=== PATIENT | female | born 1955 | race Caucasian/White ===

== ENCOUNTER → 2017-10-20 | Outpatient (CLI) | payer BC ==
[~2017-10-20] MED LIST: ALPR-475 PO; HYDR25TA6 PO; LISI40TA PO; MONT10TA6 PO; PARO20TA98 PO; TRAZ150T62 PO; VENL150C PO
== END | disposition home or self-care (01) ==
LOC: CFH 12:54
PROVIDERS: ATTEND Family Medicine
DX: N63.10 Unspecified lump in the right breast, unspecified quadrant (principal); N64.4 Mastodynia
CPT/HCPCS: 77066

== ENCOUNTER 2018-03-15 13:05 | Inpatient (IN) | payer BC ==
[~2018-03-15] VITALS: Ht 152.4 cm; Wt 61.4 kg
[2018-03-15] MEDS ORDERED: SODIUM CHLORIDE 0.9% 1,000ML IVBOLUS ONE (14:00)
[2018-03-15] MEDS ORDERED: SODIUM CHLORIDE FLUSH 10ML SYR IVF ONE (14:00)
[2018-03-15] MEDS ORDERED: MAGNESIUM SULFATE 1 GM, THIAMINE 100 MG, FOLIC ACID 1 MG, MVI ADULT 10 ML in SODIUM CHL... IV ONE (14:30)
[2018-03-15 14:46] LABS: MEAN CORPUSCULAR HEMOGLOBIN 38.1 pg (27.0-34.8); MEAN CORPUSCULAR VOLUME 112.1 fL (80-100); MEAN PLATELET VOLUME 7.3 fL (7.4-10.4); PLATELET COUNT 407 x10^3/uL (130-400); RED BLOOD COUNT 3.15 x10^6/uL (3.82-5.3); RED CELL DISTRIBUTION WIDTH 15.4 % (9.6-15.2)
[2018-03-15 14:53] LABS: ALBUMIN 2.6 g/dL (3.4-5.0); ANION GAP 25 mmol/L (5-15); CALCIUM 8.1 mg/dL (8.5-10.1); CHLORIDE 83 mmol/L (98-107)
[2018-03-15 14:56] LABS: ALANINE AMINOTRANSFERASE 55 U/L (12-78); ALKALINE PHOSPHATASE 97 U/L (45-117); CREATININE 0.81 mg/dL (0.55-1.02); TOTAL PROTEIN 6.1 g/dL (6.4-8.2)
[2018-03-15 15:02] LABS: MD YES
[2018-03-15] MEDS ORDERED: POTASSIUM CHLORIDE 40 MEQ in SODIUM CHLORIDE 0.9% 500 ML IV ONE ×2 (15:30→22:00)
[2018-03-15] MEDS ORDERED: POTASSIUM CHLORIDE 20 MEQ TAB.ER.PRT PO ONE (15:30)
[2018-03-15] MEDS ORDERED: POTASSIUM CHLORIDE 20 MEQ TAB.ER.PRT ONE (15:33)
[2018-03-15 15:36] LABS: BAND#(MANUAL) 0.64 x10^3/uL; BANDS%(MANUAL) 5 % (0-7); LYMPH#(MANUAL) 1.41 x10^3/uL (1-3.4); LYMPHS% (MANUAL) 11 % (22-44); MONOS#(MANUAL) 1.28 x10^3/uL (0.3-2.7); MONOS% (MANUAL) 10 % (2-9); SEG#(MANUAL) 9.47 x10^3/uL (1.8-6.8); SEGS% (MANUAL) 74 % (42-75)
[2018-03-15 15:37] LABS: <PLATELET ESTIMATE> INCREASED; ANISOCYTOSIS 2+
[2018-03-15 15:38] LABS: LARGE PLATELETS 1+; SMALL PLATELETS 1+
[2018-03-15] MEDS: SODIUM CHLORIDE 0.9% 1,000 ML IV SCH ×4 (15:42→23:00)
[2018-03-15] MEDS ORDERED: OMNIPAQUE 350 MG/ML, 100ML BOTTLE ONE (15:58)
[2018-03-15] MEDS ORDERED: morphine SULFATE 10 MG/ML, 1ML IVPush PRN (16:00)
[2018-03-15] MEDS ORDERED: ENALAPRILAT 1.25 MG/ML, 2ML IVPush PRN (16:00)
[2018-03-15 16:10] LABS: INTERNATIONAL NORMALIZED RATIO 1.01 (0.93-1.1); PROTHROMBIN TIME 10.4 Seconds (9.6-11.5)
[2018-03-15 16:31] VITALS: BP 88/50
[2018-03-15] MEDS ORDERED: LORazepam 2 MG/ML, 1ML IVPush PRN (17:00)
[2018-03-15] MEDS: OXYcodone IR 5MG TABLET PO PRN ×2 (18:06→21:22)
[2018-03-15 19:08] VITALS: BP 99/74
[2018-03-15 19:10] LABS: ANION GAP 20 mmol/L (5-15); CALCIUM 6.8 mg/dL (8.5-10.1); CHLORIDE 90 mmol/L (98-107); CREATININE 0.65 mg/dL (0.55-1.02)
[2018-03-15] MEDS: POTASSIUM CHLORIDE 20 MEQ TAB.ER.PRT PO SCH (19:43)
[2018-03-15] MEDS: VENLAFAXINE 75 MG CAP ER PO SCH (20:22)
[2018-03-15] MEDS: TRAZODONE 150MG TABLET PO SCH (20:23)
[2018-03-15] MEDS: HEPARIN 5,000 UNITS/ML, 1ML SQ SCH (20:23)
[2018-03-15] MEDS ORDERED: TRAZODONE 150MG TABLET PO PRN (21:00)
[2018-03-16 02:35] VITALS: BP 95/64
[2018-03-16 04:57] LABS: MEAN CORPUSCULAR HEMOGLOBIN 38.5 pg (27.0-34.8); MEAN CORPUSCULAR HGB CONC 34.2 g/dL (32.4-35.8); MEAN CORPUSCULAR VOLUME 112.6 fL (80-100); MEAN PLATELET VOLUME 7.5 fL (7.4-10.4); PLATELET COUNT 307 x10^3/uL (130-400); RED BLOOD COUNT 2.57 x10^6/uL (3.82-5.3); RED CELL DISTRIBUTION WIDTH 15.2 % (9.6-15.2)
[2018-03-16 05:00] LABS: ANION GAP 15 mmol/L (5-15); CALCIUM 6.7 mg/dL (8.5-10.1); CHLORIDE 105 mmol/L (98-107)
[2018-03-16] MEDS: HEPARIN 5,000 UNITS/ML, 1ML SQ SCH ×3 (05:00→21:24)
[2018-03-16 05:05] LABS: ALANINE AMINOTRANSFERASE 39 U/L (12-78); ALKALINE PHOSPHATASE 77 U/L (45-117); BILIRUBIN,TOTAL 0.7 mg/dL (0.2-1.0); CHOLESTEROL, TOTAL 113 mg/dL (140-239); CREATININE 0.55 mg/dL (0.55-1.02); HDL CHOL % 50 % (28-40); HDL CHOLESTEROL (DIRECT) 56 mg/dL (40-60); LDL CHOLESTEROL,CALCULATED 40 mg/dL (54-169); LDL/HDL RATIO 0.7 (0.5-3.0); TOTAL PROTEIN 4.7 g/dL (6.4-8.2); TRIGLYCERIDES 83 mg/dL (50-200); VLDL CHOLESTEROL 17 mg/dL (0-25)
[2018-03-16 06:01] LABS: MD YES
[2018-03-16 06:06] LABS: <PLATELET ESTIMATE> ADEQUATE; ANISOCYTOSIS 1+; BAND#(MANUAL) 0.13 x10^3/uL; BANDS%(MANUAL) 2 % (0-7); EOS#(MANUAL) 0.06 x10^3/uL (0.0-0.4); EOS% (MANUAL) 1 % (1-7); LARGE PLATELETS 1+; LYMPH#(MANUAL) 1.02 x10^3/uL (1-3.4); LYMPHS% (MANUAL) 16 % (22-44); MONOS#(MANUAL) 0.19 x10^3/uL (0.3-2.7); MONOS% (MANUAL) 3 % (2-9); MYELOCYTES# (MANUAL) 0.06 x10^3/uL (0-0); MYELOCYTES% (MANUAL) 1 % (0-0); SEG#(MANUAL) 4.93 x10^3/uL (1.8-6.8); SEGS% (MANUAL) 77 % (42-75)
[2018-03-16 06:59] VITALS: BP 91/63
[2018-03-16] MEDS: THIAMINE 100MG TABLET PO SCH (09:00)
[2018-03-16] MEDS ORDERED: LISINOPRIL 20 MG TABLET PO SCH (09:00)
[2018-03-16] MEDS: MONTELUKAST 10 MG TABLET PO SCH (09:33)
[2018-03-16] MEDS: VENLAFAXINE 75 MG CAP ER PO SCH ×2 (09:34→21:24)
[2018-03-16] MEDS: POTASSIUM CHLORIDE 20 MEQ TAB.ER.PRT PO SCH ×2 (09:34→16:34)
[2018-03-16] MEDS: FOLIC ACID 1 MG TABLET PO SCH (09:34)
[2018-03-16] MEDS: MULTIVITAMIN 1 TABLET PO SCH (09:35)
[2018-03-16 14:24] VITALS: BP 127/79
[2018-03-16] MEDS ORDERED: SODIUM CHLORIDE 0.9% 1,000 ML IV SCH (15:42)
[2018-03-16] MEDS: SODIUM CHLORIDE 0.9% 1,000 ML IV SCH ×2 (16:33→23:57)
[2018-03-16 20:22] VITALS: BP 120/73
[2018-03-16 20:24] VITALS: BP 132/87
[2018-03-16 20:26] VITALS: BP 120/80
[2018-03-16] MEDS: TRAZODONE 150MG TABLET PO SCH (21:24)
[2018-03-16] MEDS: CALCIUM CARBONATE 500 MG TABLET PO SCH (21:24)
[2018-03-17 02:02] VITALS: BP 138/83
[2018-03-17 04:45] LABS: MEAN CORPUSCULAR HEMOGLOBIN 38.3 pg (27.0-34.8); MEAN CORPUSCULAR HGB CONC 34.4 g/dL (32.4-35.8); MEAN CORPUSCULAR VOLUME 111.2 fL (80-100); MEAN PLATELET VOLUME 7.4 fL (7.4-10.4); PLATELET COUNT 310 x10^3/uL (130-400); RED BLOOD COUNT 2.82 x10^6/uL (3.82-5.3); RED CELL DISTRIBUTION WIDTH 15.3 % (9.6-15.2)
[2018-03-17 04:59] LABS: CHLORIDE 103 mmol/L (98-107)
[2018-03-17 05:07] LABS: ALANINE AMINOTRANSFERASE 48 U/L (12-78); ALBUMIN 2.4 g/dL (3.4-5.0); ALKALINE PHOSPHATASE 87 U/L (45-117); ANION GAP 8 mmol/L (5-15); BILIRUBIN,TOTAL 0.7 mg/dL (0.2-1.0); TOTAL PROTEIN 5.4 g/dL (6.4-8.2)
[2018-03-17] MEDS: HEPARIN 5,000 UNITS/ML, 1ML SQ SCH (05:10)
[2018-03-17 05:24] LABS: BASOPHILS # (AUTO) 0.02 x10^3/uL (0-0.1); BASOPHILS % (AUTO) 0 % (0-1); EOSINOPHILS # (AUTO) 0.08 x10^3/uL (0-0.4); EOSINOPHILS % (AUTO) 1 % (1-7); LYMPHOCYTES # (AUTO) 1.22 x10^3/uL (1-3.4); LYMPHOCYTES % (AUTO) 20 % (22-44); MD SCAN; MONOCYTES # (AUTO) 0.84 x10^3/uL (0.2-0.8); MONOCYTES % (AUTO) 14 % (2-9); NEUTROPHILS # (AUTO) 4.03 x10^3/uL (1.8-6.8); NEUTROPHILS % (AUTO) 65 % (42-75)
[2018-03-17 08:00] VITALS: BP 114/78
[2018-03-17 08:02] VITALS: BP 128/91
[2018-03-17 08:04] VITALS: BP 118/82
[2018-03-17] MEDS: MONTELUKAST 10 MG TABLET PO SCH (08:10)
[2018-03-17] MEDS: ENOXAPARIN 40 MG/0.4 ML SQ SCH (08:10)
[2018-03-17] MEDS: POTASSIUM CHLORIDE 20 MEQ TAB.ER.PRT PO SCH ×2 (08:11→16:59)
[2018-03-17] MEDS: MULTIVITAMIN 1 TABLET PO SCH (08:11)
[2018-03-17] MEDS: THIAMINE 100MG TABLET PO SCH (08:11)
[2018-03-17] MEDS: CALCIUM CARBONATE 500 MG TABLET PO SCH ×2 (08:12→20:29)
[2018-03-17] MEDS: VENLAFAXINE 75 MG CAP ER PO SCH ×2 (08:12→20:29)
[2018-03-17] MEDS: FOLIC ACID 1 MG TABLET PO SCH (08:13)
[2018-03-17 11:39] LABS: CLOSTRIDIUM DIFFICILE ANTIGEN NEGATIVE; CLOSTRIDIUM DIFFICILE TOXIN NEGATIVE (Negative)
[2018-03-17 14:22] VITALS: BP 120/88
[2018-03-17] MEDS: SODIUM CHLORIDE 0.9% 1,000 ML IV SCH (15:42)
[2018-03-17 20:02] VITALS: BP 131/91
[2018-03-17] MEDS: TRAZODONE 150MG TABLET PO SCH (20:28)
[2018-03-18 01:49] VITALS: BP 127/84
[2018-03-18 01:50] VITALS: BP 116/79
[2018-03-18 01:51] VITALS: BP 121/88
[2018-03-18 05:35] LABS: MEAN CORPUSCULAR HEMOGLOBIN 38.3 pg (27.0-34.8); MEAN CORPUSCULAR HGB CONC 34.6 g/dL (32.4-35.8); MEAN CORPUSCULAR VOLUME 110.7 fL (80-100); MEAN PLATELET VOLUME 7.3 fL (7.4-10.4); PLATELET COUNT 262 x10^3/uL (130-400); RED BLOOD COUNT 2.73 x10^6/uL (3.82-5.3); RED CELL DISTRIBUTION WIDTH 15.7 % (9.6-15.2)
[2018-03-18 05:44] LABS: ALANINE AMINOTRANSFERASE 47 U/L (12-78); ALBUMIN 2.4 g/dL (3.4-5.0); ANION GAP 8 mmol/L (5-15); CALCIUM 7.9 mg/dL (8.5-10.1); CHLORIDE 103 mmol/L (98-107); CREATININE 0.49 mg/dL (0.55-1.02)
[2018-03-18 05:46] LABS: ALKALINE PHOSPHATASE 79 U/L (45-117); BILIRUBIN,TOTAL 0.6 mg/dL (0.2-1.0); TOTAL PROTEIN 5.3 g/dL (6.4-8.2)
[2018-03-18 06:07] LABS: BASOPHILS # (AUTO) 0.04 x10^3/uL (0-0.1); BASOPHILS % (AUTO) 1 % (0-1); EOSINOPHILS # (AUTO) 0.09 x10^3/uL (0-0.4); EOSINOPHILS % (AUTO) 2 % (1-7); LYMPHOCYTES # (AUTO) 1.19 x10^3/uL (1-3.4); LYMPHOCYTES % (AUTO) 22 % (22-44); MD SCAN; MONOCYTES # (AUTO) 0.88 x10^3/uL (0.2-0.8); MONOCYTES % (AUTO) 16 % (2-9); NEUTROPHILS # (AUTO) 3.27 x10^3/uL (1.8-6.8); NEUTROPHILS % (AUTO) 60 % (42-75)
[2018-03-18 07:21] VITALS: BP 134/83
[2018-03-18] MEDS: VENLAFAXINE 75 MG CAP ER PO SCH (09:31)
[2018-03-18] MEDS: ENOXAPARIN 40 MG/0.4 ML SQ SCH (09:31)
[2018-03-18] MEDS: POTASSIUM CHLORIDE 20 MEQ TAB.ER.PRT PO SCH (09:32)
[2018-03-18] MEDS: MONTELUKAST 10 MG TABLET PO SCH (09:32)
[2018-03-18] MEDS: MULTIVITAMIN 1 TABLET PO SCH (09:33)
[2018-03-18] MEDS: CALCIUM CARBONATE 500 MG TABLET PO SCH (09:33)
[2018-03-18] MEDS: THIAMINE 100MG TABLET PO SCH (09:33)
[2018-03-18] MEDS: FOLIC ACID 1 MG TABLET PO SCH (09:34)
[2018-03-18] MEDS ORDERED: CALC-666 PO (10:38)
[2018-03-18] MEDS ORDERED: THIA100T67 PO (10:38)
[2018-03-18] MEDS ORDERED: POTA20TA6 PO (10:38)
[2018-03-18] MEDS ORDERED: MAGN400T26 PO (10:38)
[2018-03-18] MEDS ORDERED: TRAM50TA2 PO (10:38)
[2018-03-18] MEDS ORDERED: ONDA4TAB13 SL ×2 (10:38)
[2018-03-18] MEDS ORDERED: MULT1TAB60 PO (10:38)
[2018-03-18] MEDS ORDERED: FOLI-17 PO (10:38)
[2018-03-18] MEDS: SODIUM CHLORIDE 0.9% 1,000 ML IV SCH (11:42)
== END 2018-03-18 13:56 | disposition home health service (06) | DRG 432 ==
LOC: ED 15:17 → EDIP 15:18 → ED 15:52 → 4WST 16:21 → DCLOUNGE 03-18 13:36
PROVIDERS: ADMIT Internal Medicine; ATTEND Internal Medicine
DX: K70.10 Alcoholic hepatitis without ascites (principal); K85.90 Acute pancreatitis without necrosis or infection, unspecified; E44.0 Moderate protein-calorie malnutrition; E87.1 Hypo-osmolality and hyponatremia; K52.9 Noninfective gastroenteritis and colitis, unspecified; E87.6 Hypokalemia; E86.0 Dehydration; K76.0 Fatty (change of) liver, not elsewhere classified; I10 Essential (primary) hypertension; F17.210 Nicotine dependence, cigarettes, uncomplicated; F10.10 Alcohol abuse, uncomplicated; X58.XXXA Exposure to other specified factors, initial encounter; R29.6 Repeated falls; F32.9 Major depressive disorder, single episode, unspecified; D75.89 Other specified diseases of blood and blood-forming organs; G47.00 Insomnia, unspecified; J45.909 Unspecified asthma, uncomplicated; S05.12XA Contusion of eyeball and orbital tissues, left eye, initial encounter; Z98.84 Bariatric surgery status; Z91.81 History of falling; Y93.89 Activity, other specified; Y92.89 Other specified places as the place of occurrence of the external cause; Y99.8 Other external cause status; Z90.49 Acquired absence of other specified parts of digestive tract; Z68.26 Body mass index [BMI] 26.0-26.9, adult
CPT/HCPCS: 36415; 70450; 72125; 74177; 76700; 80048; 80053; 80061; 80307; 82607; 83605; 83690; 83735; 84443; 85025; 85610; 85730; 87324; 93005; 93306; 93880; 96374; 96375; 99285; G0378; J1644; J1650; J3411; J3475; J3480; Q9967; J2060; J7030; J7040

== ENCOUNTER 2018-03-29 14:35 | Emergency (ER) | payer BC ==
[~2018-03-29] VITALS: Ht 172.7 cm; Wt 57.8 kg
[~2018-03-29 14:35] MED LIST changes: +CALC-666 PO; +FOLI-17 PO; +MAGN400T26 PO; +MULT1TAB60 PO; +ONDA4TAB13 SL; +POTA20TA6 PO; +THIA100T67 PO; +TRAM50TA2 PO
[2018-03-29 14:53] VITALS: BP 129/85
== END 2018-03-29 16:44 | disposition home or self-care (01) ==
LOC: ED 16:32
DX: S92.352A Displaced fracture of fifth metatarsal bone, left foot, initial encounter for closed fracture (principal); J45.909 Unspecified asthma, uncomplicated; F17.200 Nicotine dependence, unspecified, uncomplicated; Z90.49 Acquired absence of other specified parts of digestive tract; W19.XXXA Unspecified fall, initial encounter; Y93.89 Activity, other specified; Y99.8 Other external cause status; Y92.89 Other specified places as the place of occurrence of the external cause
CPT/HCPCS: 29515; 99284

== ENCOUNTER 2019-01-02 15:48 | Emergency (ER) | payer BC ==
[~2019-01-02] VITALS: Ht 152.4 cm; Wt 72.7 kg
[2019-01-02 17:49] VITALS: BP 142/76
== END 2019-01-02 17:51 | disposition home or self-care (01) ==
LOC: ED 16:19
DX: F33.9 Major depressive disorder, recurrent, unspecified (principal); F10.120 Alcohol abuse with intoxication, uncomplicated; I10 Essential (primary) hypertension; Z90.49 Acquired absence of other specified parts of digestive tract
CPT/HCPCS: 36415; 80048; 82040; 84443; 85025; 99284

== ENCOUNTER 2019-04-05 07:07 | Outpatient (CLI) | payer BC ==
[~2019-04-05 07:07] MED LIST changes: -ALPR-475 PO; +ALPR0.5T7 PO
== END 2019-04-05 23:59 | disposition home or self-care (01) ==
LOC: CFH 07:07
PROVIDERS: ATTEND Nurse Practitioner Family
DX: Z12.31 Encounter for screening mammogram for malignant neoplasm of breast (principal); R16.0 Hepatomegaly, not elsewhere classified; K76.0 Fatty (change of) liver, not elsewhere classified; Z90.49 Acquired absence of other specified parts of digestive tract
CPT/HCPCS: 76705; 77063; 77067

== ENCOUNTER 2019-11-18 10:26 | Inpatient (IN) | payer BC ==
[~2019-11-18] VITALS: Ht 152.4 cm; Wt 54.9 kg
[~2019-11-18 10:26] MED LIST changes: +MULT-449 PO; -MULT1TAB60 PO
[2019-11-18] MEDS ORDERED: SODIUM CHLORIDE FLUSH 10ML SYR IVF ONE (11:00)
[2019-11-18] MEDS ORDERED: SODIUM CHLORIDE 0.9% 1,000ML IVBOLUS ONE (11:00)
--- NOTE | 2019-11-18 11:03 | NUR ---
PT STATED SHE CANNOT PRODUCE A URINE SAMPLE AT THIS TIME. PT AGREED TO STRAIGHT CATH TO COLLECT URINE. TASK RN AT BEDSIDE FOR PIV START AND LAB DRAW.
--- NOTE | 2019-11-18 11:25 | NUR ---
URINE COLLECTED VIA STRAIGHT CATH AND TAKEN TO LAB.
[2019-11-18 11:40] LABS: ALANINE AMINOTRANSFERASE 37 U/L (12-78); ALBUMIN 2.8 g/dL (3.4-5.0); ANION GAP 14 mmol/L (5-15); CALCIUM 8.5 mg/dL (8.5-10.1); CHLORIDE 82 mmol/L (98-107); CREATININE 0.85 mg/dL (0.55-1.02)
[2019-11-18 11:41] LABS: BASOPHILS # (AUTO) 0.05 x10^3/uL (0-0.1); BASOPHILS % (AUTO) 1 % (0-1); EOSINOPHILS # (AUTO) 0.01 x10^3/uL (0-0.4); EOSINOPHILS % (AUTO) 0 % (1-7); LYMPHOCYTES # (AUTO) 0.89 x10^3/uL (1-3.4); LYMPHOCYTES % (AUTO) 10 % (22-44); MD NO; MEAN CORPUSCULAR HEMOGLOBIN 34.6 pg (27.0-34.8); MEAN CORPUSCULAR HGB CONC 33.3 g/dL (32.4-35.8); MEAN CORPUSCULAR VOLUME 103.9 fL (80-100); MEAN PLATELET VOLUME 8.9 fL (7.4-10.4); MONOCYTES # (AUTO) 0.47 x10^3/uL (0.2-0.8); MONOCYTES % (AUTO) 5 % (2-9); NEUTROPHILS # (AUTO) 7.53 x10^3/uL (1.8-6.8); NEUTROPHILS % (AUTO) 84 % (42-75); PLATELET COUNT 247 x10^3/uL (130-400); RED BLOOD COUNT 3.19 x10^6/uL (3.82-5.3); RED CELL DISTRIBUTION WIDTH 21.5 % (9.6-15.2)
[2019-11-18 11:43] LABS: ALKALINE PHOSPHATASE 128 U/L (45-117); TOTAL PROTEIN 6.8 g/dL (6.4-8.2)
[2019-11-18] MEDS ORDERED: POTASSIUM CHLORIDE 40 MEQ in SODIUM CHLORIDE 0.9% 1,000 ML IV ONE ×2 (11:58→12:56)
[2019-11-18] MEDS ORDERED: MAGNESIUM SULFATE 1 GM in SODIUM CHLORIDE 0.9% 50 ML IV ONE (12:00)
--- NOTE | 2019-11-18 12:08 | NUR ---
PT AT XRAY
--- NOTE | 2019-11-18 12:09 | NUR ---
RECEIVED CRITICAL POTASSIUM 2.0. NOTIFIED. NEW ORDERS FOR MAG AND POTASSIUM. REQUESTED IV PUMP FROM [facility]
[2019-11-18 12:19] LABS: MICROSCOPIC INDICATED
[2019-11-18] MEDS ORDERED: MAGNESIUM SULFATE/D5W 100 ML IVPB ONE (12:30)
--- NOTE | 2019-11-18 12:54 | NUR ---
HOSPITALIST AT BEDSIDE. TECH AT BEDSIDE FOR US PIV PLACEMENT.
[2019-11-18] MEDS ORDERED: SODIUM CHLORIDE FLUSH 10ML SYR IVF PRN (13:00)
[2019-11-18] MEDS ORDERED: NS + 40MEQ KCL 1,000 ML IV ONE (13:02)
[2019-11-18] MEDS ORDERED: LACTULOSE 20 GM/30 ML UDC PO ONE (13:30)
[2019-11-18] MEDS ORDERED: LORazepam 2 MG/ML, 1ML IVPush PRN (13:30)
[2019-11-18] MEDS ORDERED: ONDANSETRON ODT 4 MG PO PRN (13:30)
[2019-11-18] MEDS: CEFTRIAXONE PMX 1GM/50ML 50 ML IV SCH (13:30)
[2019-11-18] MEDS ORDERED: ONDANSETRON 2MG/ML, 2ML IVPush PRN (13:30)
[2019-11-18] MEDS ORDERED: ACETAMINOPHEN 325 MG TABLET PO PRN (13:30)
[2019-11-18 13:48] LABS: SALICYLATE LEVEL < 1.7 mg/dL (2.8-20.0)
[2019-11-18] MEDS ORDERED: CEFTRIAXONE PMX 1GM/50ML 50 ML ONE (14:08)
--- NOTE | 2019-11-18 14:14 | NUR ---
REPORT GIVEN TO CHER TAI.
[2019-11-18 15:00] VITALS: BP 95/61
[2019-11-18] MEDS: ENOXAPARIN 40 MG/0.4 ML SQ SCH (15:33)
[2019-11-18] MEDS: POTASSIUM CHLORIDE 20 MEQ TAB.ER.PRT PO SCH ×2 (15:33→17:00)
[2019-11-18 18:45] VITALS: BP 106/74
[2019-11-18 19:16] LABS: AMPHETAMINE SCREEN, URINE Negative (Negative); BARBITURATE SCREEN, URINE Negative (Negative); BENZODIAZEPINE SCREEN, URINE Negative (Negative); CANNABINOID SCREEN, URINE Negative (Negative); COCAINE SCREEN, URINE Negative (Negative); METHADONE SCREEN, URINE Negative (Negative); OPIATE SCREEN, URINE Negative (Negative)
[2019-11-18] MEDS: NS + 20MEQ KCL 1,000 ML IV SCH (20:15)
[2019-11-19 02:00] VITALS: BP 97/63
[2019-11-19 04:56] LABS: BASOPHILS # (AUTO) 0.04 x10^3/uL (0-0.1); BASOPHILS % (AUTO) 1 % (0-1); EOSINOPHILS # (AUTO) 0.03 x10^3/uL (0-0.4); EOSINOPHILS % (AUTO) 1 % (1-7); LYMPHOCYTES # (AUTO) 1.29 x10^3/uL (1-3.4); LYMPHOCYTES % (AUTO) 24 % (22-44); MD NO; MEAN CORPUSCULAR HEMOGLOBIN 33.9 pg (27.0-34.8); MEAN CORPUSCULAR HGB CONC 32.5 g/dL (32.4-35.8); MEAN CORPUSCULAR VOLUME 104.4 fL (80-100); MEAN PLATELET VOLUME 8.6 fL (7.4-10.4); MONOCYTES # (AUTO) 0.48 x10^3/uL (0.2-0.8); MONOCYTES % (AUTO) 9 % (2-9); NEUTROPHILS % (AUTO) 66 % (42-75); PLATELET COUNT 173 x10^3/uL (130-400); RED BLOOD COUNT 2.56 x10^6/uL (3.82-5.3); RED CELL DISTRIBUTION WIDTH 21.5 % (9.6-15.2)
[2019-11-19 05:05] LABS: CALCIUM 7.5 mg/dL (8.5-10.1); CHLORIDE 94 mmol/L (98-107)
[2019-11-19 05:11] LABS: ALANINE AMINOTRANSFERASE 32 U/L (12-78); ALBUMIN 2.3 g/dL (3.4-5.0); ALKALINE PHOSPHATASE 102 U/L (45-117); ANION GAP 8 mmol/L (5-15); BILIRUBIN,TOTAL 2.6 mg/dL (0.2-1.0); TOTAL PROTEIN 5.5 g/dL (6.4-8.2)
[2019-11-19 07:16] VITALS: BP 103/74
[2019-11-19] MEDS ORDERED: PANTOPRAZOLE 40 MG IV IVPush SCH (07:30)
[2019-11-19] MEDS: POTASSIUM CHLORIDE 20 MEQ TAB.ER.PRT PO SCH (08:25)
[2019-11-19] MEDS: FOLIC ACID 1 MG TABLET PO SCH (08:25)
[2019-11-19] MEDS: THIAMINE 100MG TABLET PO SCH (08:25)
[2019-11-19] MEDS: MULTIVITAMIN 1 TABLET PO SCH (09:00)
[2019-11-19] MEDS: NS + 20MEQ KCL 1,000 ML IV SCH (11:09)
[2019-11-19 13:32] VITALS: BP 133/80
[2019-11-19] MEDS: CEFTRIAXONE PMX 1GM/50ML 50 ML IV SCH (14:22)
[2019-11-19] MEDS: ENOXAPARIN 40 MG/0.4 ML SQ SCH (14:22)
[2019-11-19] MEDS ORDERED: POTASSIUM CHLORIDE 20 MEQ TAB.ER.PRT PO SCH (17:00)
[2019-11-19 18:45] VITALS: BP 109/74
[2019-11-20 00:40] VITALS: BP 113/75
[2019-11-20] MEDS: NS + 20MEQ KCL 1,000 ML IV SCH ×2 (05:15→18:04)
[2019-11-20] MEDS: OMEPRAZOLE 20 MG CAPSULE.DR PO SCH (05:16)
[2019-11-20 06:39] LABS: ANION GAP 6 mmol/L (5-15); CALCIUM 8.1 mg/dL (8.5-10.1); CHLORIDE 98 mmol/L (98-107)
[2019-11-20 07:00] VITALS: BP 128/83
[2019-11-20] MEDS: MULTIVITAMIN 1 TABLET PO SCH (09:18)
[2019-11-20] MEDS: POTASSIUM CHLORIDE 20 MEQ TAB.ER.PRT PO SCH ×4 (09:18→21:00)
[2019-11-20] MEDS: FOLIC ACID 1 MG TABLET PO SCH (09:19)
[2019-11-20] MEDS: THIAMINE 100MG TABLET PO SCH (09:19)
[2019-11-20 13:03] VITALS: BP 107/68
[2019-11-20] MEDS: CEFTRIAXONE PMX 1GM/50ML 50 ML IV SCH (14:10)
[2019-11-20] MEDS: ENOXAPARIN 40 MG/0.4 ML SQ SCH (14:10)
[2019-11-20 19:11] VITALS: BP 102/63
[2019-11-21 00:50] VITALS: BP 110/68
[2019-11-21] MEDS: OMEPRAZOLE 20 MG CAPSULE.DR PO SCH (06:12)
[2019-11-21 06:17] LABS: ANION GAP 6 mmol/L (5-15); CALCIUM 8.3 mg/dL (8.5-10.1); CHLORIDE 104 mmol/L (98-107)
[2019-11-21 06:21] LABS: % IRON SATURATION 18 % (20-55); CREATININE 0.53 mg/dL (0.55-1.02); IRON LEVEL 36 mcg/dL (50-170); TOTAL IRON BINDING CAPACITY 199 mcg/dL (250-450)
[2019-11-21 06:38] VITALS: BP 117/74
[2019-11-21 06:43] LABS: BASOPHILS # (AUTO) 0.05 x10^3/uL (0-0.1); BASOPHILS % (AUTO) 1 % (0-1); EOSINOPHILS % (AUTO) 1 % (1-7); LYMPHOCYTES # (AUTO) 2.48 x10^3/uL (1-3.4); LYMPHOCYTES % (AUTO) 30 % (22-44); MD SCAN; MEAN CORPUSCULAR HGB CONC 32.6 g/dL (32.4-35.8); MEAN CORPUSCULAR VOLUME 104.3 fL (80-100); MEAN PLATELET VOLUME 8.9 fL (7.4-10.4); MONOCYTES # (AUTO) 0.68 x10^3/uL (0.2-0.8); MONOCYTES % (AUTO) 8 % (2-9); NEUTROPHILS # (AUTO) 5.05 x10^3/uL (1.8-6.8); NEUTROPHILS % (AUTO) 60 % (42-75); PLATELET COUNT 199 x10^3/uL (130-400); RED BLOOD COUNT 2.74 x10^6/uL (3.82-5.3); RED CELL DISTRIBUTION WIDTH 21.8 % (9.6-15.2)
[2019-11-21] MEDS: THIAMINE 100MG TABLET PO SCH (08:14)
[2019-11-21] MEDS: FOLIC ACID 1 MG TABLET PO SCH (08:14)
[2019-11-21] MEDS: POTASSIUM CHLORIDE 20 MEQ TAB.ER.PRT PO SCH ×2 (08:14→17:22)
[2019-11-21] MEDS: MULTIVITAMIN 1 TABLET PO SCH (08:14)
[2019-11-21] MEDS: NS + 20MEQ KCL 1,000 ML IV SCH ×2 (08:14→20:37)
[2019-11-21 12:28] VITALS: BP 115/79
[2019-11-21] MEDS: CEFTRIAXONE PMX 1GM/50ML 50 ML IV SCH (13:47)
[2019-11-21] MEDS: ENOXAPARIN 40 MG/0.4 ML SQ SCH (13:48)
[2019-11-21 16:33] LABS: CLOSTRIDIUM DIFFICILE ANTIGEN POSITIVE; CLOSTRIDIUM DIFFICILE TOXIN NEGATIVE (Negative)
[2019-11-21 19:46] VITALS: BP 154/87
[2019-11-22 02:02] VITALS: BP 147/80
[2019-11-22] MEDS: OMEPRAZOLE 20 MG CAPSULE.DR PO SCH (06:20)
[2019-11-22 06:48] VITALS: BP 148/87
[2019-11-22] MEDS: FOLIC ACID 1 MG TABLET PO SCH (08:30)
[2019-11-22] MEDS: MULTIVITAMIN 1 TABLET PO SCH (08:30)
[2019-11-22] MEDS: THIAMINE 100MG TABLET PO SCH (08:30)
[2019-11-22] MEDS: NS + 20MEQ KCL 1,000 ML IV SCH (10:51)
[2019-11-22 12:06] VITALS: BP 117/73
[2019-11-22] MEDS: CEFTRIAXONE PMX 1GM/50ML 50 ML IV SCH (14:38)
[2019-11-22] MEDS: ENOXAPARIN 40 MG/0.4 ML SQ SCH (14:39)
[2019-11-22] MEDS ORDERED: LORazepam 0.5MG TABLET PO PRN (16:30)
[2019-11-22] MEDS ORDERED: GADOTERATE 7.5 MMOL/15 ML SYR ONE (17:07)
[2019-11-22 20:00] VITALS: BP 134/84
[2019-11-22] MEDS: LORazepam 0.5MG TABLET PO SCH (22:46)
[2019-11-23 01:57] VITALS: BP 138/88
[2019-11-23] MEDS: NS + 20MEQ KCL 1,000 ML IV SCH ×2 (04:07→20:05)
[2019-11-23 05:34] LABS: MEAN CORPUSCULAR HEMOGLOBIN 33.7 pg (27.0-34.8); MEAN CORPUSCULAR HGB CONC 31.8 g/dL (32.4-35.8); MEAN CORPUSCULAR VOLUME 105.7 fL (80-100); MEAN PLATELET VOLUME 8.8 fL (7.4-10.4); PLATELET COUNT 222 x10^3/uL (130-400); RED BLOOD COUNT 2.81 x10^6/uL (3.82-5.3); RED CELL DISTRIBUTION WIDTH 23.5 % (9.6-15.2)
[2019-11-23 05:40] LABS: ALBUMIN 2.5 g/dL (3.4-5.0); CALCIUM 8.1 mg/dL (8.5-10.1); CHLORIDE 113 mmol/L (98-107)
[2019-11-23 05:56] LABS: ANISOCYTOSIS 2+; BASOPHILS # (AUTO) 0.05 x10^3/uL (0-0.1); BASOPHILS % (AUTO) 1 % (0-1); EOSINOPHILS # (AUTO) 0.23 x10^3/uL (0-0.4); EOSINOPHILS % (AUTO) 3 % (1-7); HYPOCHROMIA 1+; LYMPHOCYTES # (AUTO) 1.92 x10^3/uL (1-3.4); LYMPHOCYTES % (AUTO) 23 % (22-44); MD MORPH REVIEW ONLY; MONOCYTES # (AUTO) 0.71 x10^3/uL (0.2-0.8); MONOCYTES % (AUTO) 9 % (2-9); NEUTROPHILS # (AUTO) 5.43 x10^3/uL (1.8-6.8); NEUTROPHILS % (AUTO) 65 % (42-75); POLYCHROMASIA 1+
[2019-11-23 05:57] LABS: <PLATELET ESTIMATE> ADEQUATE; <PLT MORPHOLOGY> NORMAL PLT MORPH; HOWELL-JOLLY BODIES 1+; MICROCYTOSIS 1+
[2019-11-23 06:11] LABS: ALANINE AMINOTRANSFERASE 36 U/L (12-78); ALKALINE PHOSPHATASE 106 U/L (45-117); ANION GAP 7 mmol/L (5-15); BILIRUBIN,TOTAL 1.1 mg/dL (0.2-1.0); CREATININE 0.62 mg/dL (0.55-1.02); TOTAL PROTEIN 5.8 g/dL (6.4-8.2)
[2019-11-23] MEDS: OMEPRAZOLE 20 MG CAPSULE.DR PO SCH (06:28)
[2019-11-23 07:02] VITALS: BP 110/71
[2019-11-23] MEDS: FOLIC ACID 1 MG TABLET PO SCH (09:26)
[2019-11-23] MEDS: MULTIVITAMIN 1 TABLET PO SCH (09:26)
[2019-11-23] MEDS: LORazepam 0.5MG TABLET PO SCH ×3 (09:26→20:05)
[2019-11-23] MEDS: THIAMINE 100MG TABLET PO SCH (09:26)
[2019-11-23 12:09] VITALS: BP 118/76
[2019-11-23] MEDS ORDERED: POTASSIUM CHLORIDE 20 MEQ TAB.ER.PRT PO ONE (13:00)
[2019-11-23] MEDS: CEFTRIAXONE PMX 1GM/50ML 50 ML IV SCH (13:23)
[2019-11-23] MEDS: ENOXAPARIN 40 MG/0.4 ML SQ SCH (13:23)
[2019-11-23 20:31] VITALS: BP 129/82
[2019-11-23] MEDS ORDERED: TRAZODONE 150MG TABLET PO PRN (21:00)
[2019-11-24 03:24] VITALS: BP 130/82
[2019-11-24] MEDS: OMEPRAZOLE 20 MG CAPSULE.DR PO SCH (05:15)
[2019-11-24 06:52] VITALS: BP 121/82
[2019-11-24] MEDS: THIAMINE 100MG TABLET PO SCH (09:00)
[2019-11-24] MEDS: NS + 20MEQ KCL 1,000 ML IV SCH ×2 (10:08→23:55)
[2019-11-24] MEDS: MULTIVITAMIN 1 TABLET PO SCH (10:08)
[2019-11-24] MEDS: FOLIC ACID 1 MG TABLET PO SCH (10:08)
[2019-11-24] MEDS: LORazepam 0.5MG TABLET PO SCH ×3 (10:09→20:13)
[2019-11-24] MEDS: VENLAFAXINE 75 MG CAP ER PO SCH ×2 (10:09→20:13)
[2019-11-24 13:18] VITALS: BP 134/93
[2019-11-24] MEDS: ENOXAPARIN 40 MG/0.4 ML SQ SCH (14:32)
[2019-11-24] MEDS: CEFTRIAXONE PMX 1GM/50ML 50 ML IV SCH (14:32)
[2019-11-24 20:00] VITALS: BP 139/96
[2019-11-25 02:00] VITALS: BP 121/79
[2019-11-25] MEDS: OMEPRAZOLE 20 MG CAPSULE.DR PO SCH (05:19)
[2019-11-25 07:25] VITALS: BP 137/83
[2019-11-25] MEDS: LORazepam 0.5MG TABLET PO SCH ×3 (09:00→20:35)
[2019-11-25] MEDS: VENLAFAXINE 75 MG CAP ER PO SCH ×2 (09:00→20:39)
[2019-11-25] MEDS: FOLIC ACID 1 MG TABLET PO SCH (09:00)
[2019-11-25] MEDS: THIAMINE 100MG TABLET PO SCH (09:00)
[2019-11-25] MEDS: MULTIVITAMIN 1 TABLET PO SCH (09:01)
[2019-11-25 10:14] LABS: ANION GAP 7 mmol/L (5-15); CHLORIDE 111 mmol/L (98-107); CREATININE 0.51 mg/dL (0.55-1.02)
[2019-11-25 13:27] VITALS: BP 142/81
[2019-11-25] MEDS: CEFTRIAXONE PMX 1GM/50ML 50 ML IV SCH (13:30)
[2019-11-25] MEDS: NS + 20MEQ KCL 1,000 ML IV SCH (13:30)
[2019-11-25] MEDS: ENOXAPARIN 40 MG/0.4 ML SQ SCH (15:28)
[2019-11-25 19:06] VITALS: BP 137/83
[2019-11-25] MEDS ORDERED: MAGNESIUM SULFATE PMX 4GM/100M 100 ML IV ONE (22:00)
[2019-11-26 00:57] VITALS: BP 141/94
[2019-11-26] MEDS: OMEPRAZOLE 20 MG CAPSULE.DR PO SCH (05:45)
[2019-11-26 07:30] VITALS: BP 129/88
[2019-11-26] MEDS: THIAMINE 100MG TABLET PO SCH (07:51)
[2019-11-26] MEDS: MULTIVITAMIN 1 TABLET PO SCH (07:51)
[2019-11-26] MEDS: LORazepam 0.5MG TABLET PO SCH ×3 (07:51→20:03)
[2019-11-26] MEDS: VENLAFAXINE 75 MG CAP ER PO SCH ×2 (07:51→20:02)
[2019-11-26] MEDS: NS + 20MEQ KCL 1,000 ML IV SCH ×2 (07:51→22:19)
[2019-11-26] MEDS: FOLIC ACID 1 MG TABLET PO SCH (07:51)
[2019-11-26] MEDS: CEFTRIAXONE PMX 1GM/50ML 50 ML IV SCH (12:34)
[2019-11-26 13:49] VITALS: BP 137/88
[2019-11-26] MEDS: ENOXAPARIN 40 MG/0.4 ML SQ SCH (15:06)
[2019-11-26 18:57] VITALS: BP 134/82
[2019-11-27 00:24] VITALS: BP 145/92
[2019-11-27] MEDS: OMEPRAZOLE 20 MG CAPSULE.DR PO SCH (05:41)
[2019-11-27 07:13] VITALS: BP 127/81
[2019-11-27] MEDS ORDERED: OMEP-110 PO (08:25)
[2019-11-27] MEDS: THIAMINE 100MG TABLET PO SCH (08:27)
[2019-11-27] MEDS: LORazepam 0.5MG TABLET PO SCH (08:27)
[2019-11-27] MEDS: VENLAFAXINE 75 MG CAP ER PO SCH (08:27)
[2019-11-27] MEDS: FOLIC ACID 1 MG TABLET PO SCH (08:27)
[2019-11-27] MEDS: MULTIVITAMIN 1 TABLET PO SCH (08:27)
== END 2019-11-27 10:02 | disposition home health service (06) | DRG 70 ==
LOC: ED 11:28 → EDIP 12:26 → 4EST 14:42 → DCLOUNGE 11-27 09:47
PROVIDERS: ADMIT Internal Medicine; ATTEND Internal Medicine
PROC: 0T9B70Z Drainage of Bladder with Drainage Device, Via Natural or Artificial Opening (ICD-10-PCS; principal; 2019-11-18)
DX: G93.41 Metabolic encephalopathy (principal); E43 Unspecified severe protein-calorie malnutrition; E72.20 Disorder of urea cycle metabolism, unspecified; E87.1 Hypo-osmolality and hyponatremia; N39.0 Urinary tract infection, site not specified; D53.9 Nutritional anemia, unspecified; E83.42 Hypomagnesemia; E86.0 Dehydration; E87.6 Hypokalemia; F10.21 Alcohol dependence, in remission; F17.210 Nicotine dependence, cigarettes, uncomplicated; F32.9 Major depressive disorder, single episode, unspecified; F41.9 Anxiety disorder, unspecified; G47.00 Insomnia, unspecified; I10 Essential (primary) hypertension; J45.909 Unspecified asthma, uncomplicated; K70.10 Alcoholic hepatitis without ascites; R41.89 Other symptoms and signs involving cognitive functions and awareness; Z79.899 Other long term (current) drug therapy; Z90.49 Acquired absence of other specified parts of digestive tract; Z91.14 Patient's other noncompliance with medication regimen; Z91.19 Patient's noncompliance with other medical treatment and regimen; Z98.84 Bariatric surgery status; Y90.0 Blood alcohol level of less than 20 mg/100 ml; Z82.49 Family history of ischemic heart disease and other diseases of the circulatory system
CPT/HCPCS: 36415; 70553; 71046; 74021; 80048; 80053; 80307; 81001; 82140; 82607; 82962; 83540; 83550; 83690; 83735; 84100; 84132; 84425; 84443; 85025; 86376; 86800; 87086; 87324; 87806; 93005; 95819; 96361; 96365; 96368; 99285; G0378; J0696; J1650; J3480; A9575; C9113; G0475; J3475; J7030

== ENCOUNTER 2019-12-27 15:19 | Inpatient (IN) | payer BC ==
[~2019-12-27] VITALS: Ht 152.4 cm; Wt 60.5 kg
[~2019-12-27 15:19] MED LIST changes: +OMEP-110 PO
--- NOTE | 2019-12-27 16:42 | NUR ---
AUTOMOTIVE SALESPERSON: PT TO ROOM FROM LOBBY
[2019-12-27] MEDS ORDERED: SODIUM CHLORIDE FLUSH 10ML SYR IVF ONE (17:00)
[2019-12-27 17:26] LABS: MICROSCOPIC INDICATED
[2019-12-27 17:34] LABS: MEAN CORPUSCULAR HEMOGLOBIN 34.5 pg (27.0-34.8); MEAN CORPUSCULAR HGB CONC 32.9 g/dL (32.4-35.8); MEAN PLATELET VOLUME 8.4 fL (7.4-10.4); PLATELET COUNT 234 x10^3/uL (130-400); RED BLOOD COUNT 3.48 x10^6/uL (3.82-5.3); RED CELL DISTRIBUTION WIDTH 18.2 % (9.6-15.2)
[2019-12-27 17:45] LABS: ALANINE AMINOTRANSFERASE 58 U/L (12-78); ALBUMIN 2.4 g/dL (3.4-5.0); ANION GAP 13 mmol/L (5-15); CALCIUM 7.9 mg/dL (8.5-10.1); CHLORIDE 90 mmol/L (98-107); CREATININE 0.73 mg/dL (0.55-1.02)
[2019-12-27 17:48] LABS: ALKALINE PHOSPHATASE 172 U/L (45-117); BILIRUBIN,TOTAL 2.2 mg/dL (0.2-1.0); TOTAL PROTEIN 6.1 g/dL (6.4-8.2)
[2019-12-27 17:56] LABS: ANISOCYTOSIS 1+; BASOPHILS # (AUTO) 0.07 x10^3/uL (0-0.1); BASOPHILS % (AUTO) 0 % (0-1); EOSINOPHILS # (AUTO) 0.03 x10^3/uL (0-0.4); EOSINOPHILS % (AUTO) 0 % (1-7); HYPOCHROMIA 1+; LYMPHOCYTES # (AUTO) 1.67 x10^3/uL (1-3.4); LYMPHOCYTES % (AUTO) 9 % (22-44); MD MORPH REVIEW ONLY; MONOCYTES # (AUTO) 1.12 x10^3/uL (0.2-0.8); MONOCYTES % (AUTO) 6 % (2-9); NEUTROPHILS # (AUTO) 16.46 x10^3/uL (1.8-6.8); NEUTROPHILS % (AUTO) 85 % (42-75)
[2019-12-27 17:57] LABS: POLYCHROMASIA 1+; STOMATOCYTES 1+
[2019-12-27 17:58] LABS: <PLATELET ESTIMATE> ADEQUATE; <PLT MORPHOLOGY> NORMAL PLT MORPH
[2019-12-27] MEDS ORDERED: POTASSIUM CHLORIDE 40 MEQ in SODIUM CHLORIDE 0.9% 500 ML IV ONE ×2 (18:00→23:00)
[2019-12-27] MEDS ORDERED: POTASSIUM CHLORIDE 10% 40 MEQ/30 ML UDC PO ONE (18:00)
[2019-12-27] MEDS ORDERED: NS + 40MEQ KCL 1,000 ML IV ONE (18:16)
[2019-12-27] MEDS ORDERED: OMNIPAQUE 350 MG/ML, 100ML BOTTLE ONE (18:39)
--- NOTE | 2019-12-27 19:40 | NUR ---
PT ASSISTED TO BR. STOOL TO OBTAIN
[2019-12-27] MEDS ORDERED: TRAZODONE 150MG TABLET PO SCH (20:00)
[2019-12-27] MEDS ORDERED: ACETAMINOPHEN 325 MG TABLET PO PRN (20:30)
--- NOTE | 2019-12-27 21:00 | NUR ---
REPORT RECIEVED FROM ANSHUL. PATIENT ASSESSED, REQUESTING FOOD, HOSPITAL BED OBTAINED, POC DISCUSSED
[2019-12-27 21:29] LABS: CLOSTRIDIUM DIFFICILE ANTIGEN POSITIVE; CLOSTRIDIUM DIFFICILE TOXIN POSITIVE (Negative)
--- NOTE | 2019-12-27 21:35 | NUR ---
PT UP TO BSC INDEPENDENTLY. PT PLACED ON HOSP BED. MONITOR IN PLACE.
--- NOTE | 2019-12-27 22:00 | NUR ---
HOSP CALLED AND MESSAGED LEFT FOR CRITICAL VALUE. WILL FOLLOW UP.
--- NOTE | 2019-12-27 22:00 | NUR ---
PT. PROVIDED WITH SANDWICH AND CHIPS FROM [employer]. DENIES OTHER NEEDS. MEDS REQUESTED FROM PHARMACY.
[2019-12-27] MEDS ORDERED: HEPARIN 5,000 UNITS/ML, 1ML ONE (22:45)
[2019-12-27] MEDS ORDERED: NICOTINE 7 MG/24 HR PATCH.TD24 ONE (22:45)
--- NOTE | 2019-12-27 22:48 | NUR ---
Called and left message on hosp. phone for critical potassium. (PREVIOUS NOTE ENTERED UNDER WRONG USER)
--- NOTE | 2019-12-27 22:48 | NUR ---
Britney weber in [facility] - 12/27/19 at 2312 by JOHNIE Called and left message on [employer]. phone for critical potassium
[2019-12-27] MEDS: NICOTINE 7 MG/24 HR PATCH.TD24 TD SCH (22:55)
[2019-12-27] MEDS: HEPARIN 5,000 UNITS/ML, 1ML SQ SCH (22:55)
[2019-12-27] MEDS: VANCOMYCIN 50 MG/ML ORAL SUSP PO SCH (22:57)
[2019-12-27] MEDS: CALCIUM CARBONATE 500 MG TABLET PO SCH (22:57)
[2019-12-27] MEDS ORDERED: MAGNESIUM SULFATE PMX 2GM/50ML 50 ML IV ONE (23:00)
[2019-12-27] MEDS ORDERED: TRAZODONE MC SCH (23:45)
[2019-12-27] MEDS ORDERED: PARO30TA45 PO (23:58)
[2019-12-28] MEDS ORDERED: BUSP5TAB2 PO (00:02)
[2019-12-28 00:10] VITALS: BP 129/78
[2019-12-28] MEDS: TRAZODONE 150MG TABLET PO PRN (01:37)
[2019-12-28] MEDS: HEPARIN 5,000 UNITS/ML, 1ML SQ SCH ×3 (05:17→21:03)
[2019-12-28] MEDS: VANCOMYCIN 50 MG/ML ORAL SUSP PO SCH ×4 (05:18→22:41)
[2019-12-28 05:37] LABS: MEAN CORPUSCULAR HEMOGLOBIN 34.9 pg (27.0-34.8); MEAN CORPUSCULAR VOLUME 105.5 fL (80-100); MEAN PLATELET VOLUME 9.7 fL (7.4-10.4); PLATELET COUNT 115 x10^3/uL (130-400); RED BLOOD COUNT 3.23 x10^6/uL (3.82-5.3); RED CELL DISTRIBUTION WIDTH 18.2 % (9.6-15.2)
[2019-12-28 05:43] LABS: ANION GAP 13 mmol/L (5-15); CALCIUM 6.9 mg/dL (8.5-10.1); CHLORIDE 96 mmol/L (98-107); CREATININE 0.57 mg/dL (0.55-1.02)
[2019-12-28 06:12] LABS: MD MORPH REVIEW ONLY
[2019-12-28 06:13] LABS: ANISOCYTOSIS 1+; BASOPHILS # (AUTO) 0.09 x10^3/uL (0-0.1); BASOPHILS % (AUTO) 1 % (0-1); EOSINOPHILS # (AUTO) 0.04 x10^3/uL (0-0.4); EOSINOPHILS % (AUTO) 0 % (1-7); LYMPHOCYTES % (AUTO) 9 % (22-44); MONOCYTES # (AUTO) 1.18 x10^3/uL (0.2-0.8); MONOCYTES % (AUTO) 9 % (2-9); NEUTROPHILS % (AUTO) 82 % (42-75)
[2019-12-28 06:14] LABS: <PLATELET ESTIMATE> DECREASED; <PLT MORPHOLOGY> NORMAL PLT MORPH
[2019-12-28] MEDS ORDERED: POTASSIUM CHLORIDE 20 MEQ TAB.ER.PRT PO ONE ×2 (08:00→18:00)
[2019-12-28] MEDS: FOLIC ACID 1 MG TABLET PO SCH (08:35)
[2019-12-28] MEDS: THIAMINE 100MG TABLET PO SCH (08:35)
[2019-12-28] MEDS: MONTELUKAST 10 MG TABLET PO SCH (08:35)
[2019-12-28] MEDS: MULTIVITAMIN 1 TABLET PO SCH (08:35)
[2019-12-28] MEDS: CALCIUM CARBONATE 500 MG TABLET PO SCH ×2 (08:35→21:03)
[2019-12-28] MEDS: SODIUM CHLORIDE 0.9% 1,000 ML IV SCH (09:00)
[2019-12-28] MEDS ORDERED: ACETAMINOPHEN 325 MG TABLET PO PRN (09:00)
[2019-12-28 09:32] VITALS: BP 103/67
[2019-12-28] MEDS: LACTOBACILLUS CHEW TABLET PO SCH ×3 (10:21→21:03)
[2019-12-28 12:49] VITALS: BP 127/87
[2019-12-28 21:00] VITALS: BP 118/78
[2019-12-28] MEDS: NICOTINE 7 MG/24 HR PATCH.TD24 TD SCH (21:03)
[2019-12-29 00:22] VITALS: BP 117/80
[2019-12-29] MEDS: TRAZODONE 150MG TABLET PO PRN (00:24)
[2019-12-29] MEDS: SODIUM CHLORIDE 0.9% 1,000 ML IV SCH ×2 (04:30→17:58)
[2019-12-29] MEDS: VANCOMYCIN 50 MG/ML ORAL SUSP PO SCH ×4 (05:47→23:00)
[2019-12-29] MEDS: HEPARIN 5,000 UNITS/ML, 1ML SQ SCH ×3 (05:48→21:02)
[2019-12-29 06:03] LABS: CHLORIDE 103 mmol/L (98-107)
[2019-12-29 06:08] LABS: BASOPHILS # (AUTO) 0.06 x10^3/uL (0-0.1); BASOPHILS % (AUTO) 1 % (0-1); EOSINOPHILS # (AUTO) 0.04 x10^3/uL (0-0.4); EOSINOPHILS % (AUTO) 1 % (1-7); LYMPHOCYTES # (AUTO) 1.74 x10^3/uL (1-3.4); LYMPHOCYTES % (AUTO) 21 % (22-44); MD NO; MEAN CORPUSCULAR HEMOGLOBIN 34.3 pg (27.0-34.8); MEAN CORPUSCULAR HGB CONC 32.4 g/dL (32.4-35.8); MEAN CORPUSCULAR VOLUME 105.8 fL (80-100); MEAN PLATELET VOLUME 8.6 fL (7.4-10.4); MONOCYTES # (AUTO) 0.71 x10^3/uL (0.2-0.8); MONOCYTES % (AUTO) 9 % (2-9); NEUTROPHILS % (AUTO) 69 % (42-75); PLATELET COUNT 148 x10^3/uL (130-400); RED BLOOD COUNT 2.95 x10^6/uL (3.82-5.3)
[2019-12-29 06:14] LABS: ALANINE AMINOTRANSFERASE 50 U/L (12-78); ALKALINE PHOSPHATASE 138 U/L (45-117); ANION GAP 5 mmol/L (5-15); BILIRUBIN,TOTAL 1.1 mg/dL (0.2-1.0); CALCIUM 7.5 mg/dL (8.5-10.1); CREATININE 0.54 mg/dL (0.55-1.02)
[2019-12-29 07:29] VITALS: BP 121/85
[2019-12-29] MEDS: MULTIVITAMIN 1 TABLET PO SCH (08:54)
[2019-12-29] MEDS: FOLIC ACID 1 MG TABLET PO SCH (08:54)
[2019-12-29] MEDS: THIAMINE 100MG TABLET PO SCH (08:54)
[2019-12-29] MEDS: POTASSIUM CHLORIDE 20 MEQ TAB.ER.PRT PO SCH ×2 (08:54→12:36)
[2019-12-29] MEDS: LACTOBACILLUS CHEW TABLET PO SCH ×3 (08:54→21:02)
[2019-12-29] MEDS: MONTELUKAST 10 MG TABLET PO SCH (08:55)
[2019-12-29] MEDS: CALCIUM/VITAMIN D3 250-125 TABLET PO SCH ×3 (08:55→21:03)
[2019-12-29] MEDS: CEFTRIAXONE PMX 1GM/50ML 50 ML IV SCH (09:48)
[2019-12-29 13:40] VITALS: BP 127/78
[2019-12-29 20:52] VITALS: BP 115/73
[2019-12-29] MEDS: NICOTINE 7 MG/24 HR PATCH.TD24 TD SCH (21:03)
[2019-12-29] MEDS ORDERED: PARO7.5C2 PO (21:07)
[2019-12-30] VITALS: BP 127/88
[2019-12-30] MEDS: HEPARIN 5,000 UNITS/ML, 1ML SQ SCH ×3 (05:53→23:09)
[2019-12-30] MEDS: VANCOMYCIN 50 MG/ML ORAL SUSP PO SCH ×4 (05:53→23:09)
[2019-12-30 06:13] LABS: BASOPHILS # (AUTO) 0.04 x10^3/uL (0-0.1); BASOPHILS % (AUTO) 1 % (0-1); EOSINOPHILS # (AUTO) 0.03 x10^3/uL (0-0.4); EOSINOPHILS % (AUTO) 0 % (1-7); LYMPHOCYTES # (AUTO) 1.97 x10^3/uL (1-3.4); LYMPHOCYTES % (AUTO) 22 % (22-44); MD NO; MEAN CORPUSCULAR HEMOGLOBIN 34.7 pg (27.0-34.8); MEAN CORPUSCULAR HGB CONC 32.6 g/dL (32.4-35.8); MEAN CORPUSCULAR VOLUME 106.2 fL (80-100); MEAN PLATELET VOLUME 8.8 fL (7.4-10.4); MONOCYTES % (AUTO) 9 % (2-9); NEUTROPHILS # (AUTO) 6.09 x10^3/uL (1.8-6.8); NEUTROPHILS % (AUTO) 68 % (42-75); PLATELET COUNT 146 x10^3/uL (130-400); RED BLOOD COUNT 3.21 x10^6/uL (3.82-5.3); RED CELL DISTRIBUTION WIDTH 18.4 % (9.6-15.2)
[2019-12-30 06:21] LABS: CHLORIDE 104 mmol/L (98-107)
[2019-12-30 06:33] LABS: ALANINE AMINOTRANSFERASE 63 U/L (12-78); ALBUMIN 2.1 g/dL (3.4-5.0); ALKALINE PHOSPHATASE 144 U/L (45-117); ANION GAP 8 mmol/L (5-15); BILIRUBIN,TOTAL 1.5 mg/dL (0.2-1.0); CALCIUM 7.3 mg/dL (8.5-10.1); CREATININE 0.53 mg/dL (0.55-1.02); TOTAL PROTEIN 5.4 g/dL (6.4-8.2)
[2019-12-30 07:41] VITALS: BP 113/75
[2019-12-30] MEDS: CALCIUM/VITAMIN D3 250-125 TABLET PO SCH ×3 (08:58→23:08)
[2019-12-30] MEDS: MULTIVITAMIN 1 TABLET PO SCH (08:58)
[2019-12-30] MEDS: FOLIC ACID 1 MG TABLET PO SCH (08:58)
[2019-12-30] MEDS: THIAMINE 100MG TABLET PO SCH (08:58)
[2019-12-30] MEDS: MONTELUKAST 10 MG TABLET PO SCH (08:58)
[2019-12-30] MEDS: LACTOBACILLUS CHEW TABLET PO SCH ×3 (08:58→23:08)
[2019-12-30] MEDS: CEFTRIAXONE PMX 1GM/50ML 50 ML IV SCH (08:59)
[2019-12-30] MEDS: NS + 40MEQ KCL 1,000 ML IV SCH (09:55)
[2019-12-30] MEDS: POTASSIUM CHLORIDE 20 MEQ TAB.ER.PRT PO SCH ×3 (09:55→23:07)
[2019-12-30 13:43] VITALS: BP 117/76
[2019-12-30 20:23] VITALS: BP 123/85
[2019-12-30] MEDS: NICOTINE 7 MG/24 HR PATCH.TD24 TD SCH (23:07)
[2019-12-31] MEDS: NS + 40MEQ KCL 1,000 ML IV SCH ×2 (02:16→22:31)
[2019-12-31 03:03] VITALS: BP 123/80
[2019-12-31 05:15] LABS: ALBUMIN 2.1 g/dL (3.4-5.0); ANION GAP 6 mmol/L (5-15); CALCIUM 7.3 mg/dL (8.5-10.1); CHLORIDE 109 mmol/L (98-107)
[2019-12-31 05:18] LABS: ALANINE AMINOTRANSFERASE 68 U/L (12-78); ALKALINE PHOSPHATASE 145 U/L (45-117); BILIRUBIN,TOTAL 1.3 mg/dL (0.2-1.0); CREATININE 0.48 mg/dL (0.55-1.02); TOTAL PROTEIN 5.5 g/dL (6.4-8.2)
[2019-12-31] MEDS: VANCOMYCIN 50 MG/ML ORAL SUSP PO SCH ×4 (06:03→23:06)
[2019-12-31 08:00] VITALS: BP 105/72
[2019-12-31] MEDS: CEFTRIAXONE PMX 1GM/50ML 50 ML IV SCH (08:38)
[2019-12-31] MEDS: POTASSIUM CHLORIDE 20 MEQ TAB.ER.PRT PO SCH ×3 (08:39→22:31)
[2019-12-31] MEDS: CALCIUM/VITAMIN D3 250-125 TABLET PO SCH ×3 (08:39→22:31)
[2019-12-31] MEDS: MULTIVITAMIN 1 TABLET PO SCH (08:39)
[2019-12-31] MEDS: HEPARIN 5,000 UNITS/ML, 1ML SQ SCH ×3 (08:39→22:32)
[2019-12-31] MEDS: FOLIC ACID 1 MG TABLET PO SCH (08:40)
[2019-12-31] MEDS: MONTELUKAST 10 MG TABLET PO SCH (08:40)
[2019-12-31] MEDS: THIAMINE 100MG TABLET PO SCH (08:40)
[2019-12-31] MEDS ORDERED: MAGNESIUM SULFATE PMX 4GM/100M 100 ML IV ONE (09:00)
[2019-12-31] MEDS: LACTOBACILLUS CHEW TABLET PO SCH ×3 (11:08→22:31)
[2019-12-31 14:00] VITALS: BP 111/74
[2019-12-31 20:07] VITALS: BP 118/80
[2019-12-31] MEDS: NICOTINE 7 MG/24 HR PATCH.TD24 TD SCH (22:31)
[2020-01-01 01:39] VITALS: BP 106/71
[2020-01-01] MEDS: HEPARIN 5,000 UNITS/ML, 1ML SQ SCH ×3 (01:52→16:48)
[2020-01-01] MEDS: VANCOMYCIN 50 MG/ML ORAL SUSP PO SCH ×4 (06:40→23:55)
[2020-01-01] MEDS: LACTOBACILLUS CHEW TABLET PO SCH ×4 (06:41→23:55)
[2020-01-01 07:01] LABS: ANION GAP 4 mmol/L (5-15); CALCIUM 7.7 mg/dL (8.5-10.1); CHLORIDE 115 mmol/L (98-107); CREATININE 0.46 mg/dL (0.55-1.02)
[2020-01-01] MEDS: CEFTRIAXONE PMX 1GM/50ML 50 ML IV SCH (09:19)
[2020-01-01] MEDS: THIAMINE 100MG TABLET PO SCH (09:20)
[2020-01-01] MEDS: FOLIC ACID 1 MG TABLET PO SCH (09:20)
[2020-01-01] MEDS: CALCIUM/VITAMIN D3 250-125 TABLET PO SCH ×3 (09:20→23:55)
[2020-01-01] MEDS: MULTIVITAMIN 1 TABLET PO SCH (09:20)
[2020-01-01] MEDS: POTASSIUM CHLORIDE 20 MEQ TAB.ER.PRT PO SCH (09:20)
[2020-01-01] MEDS: MONTELUKAST 10 MG TABLET PO SCH (09:20)
[2020-01-01 09:40] VITALS: BP 126/79
[2020-01-01 14:02] VITALS: BP 121/84
[2020-01-01] MEDS: NS + 40MEQ KCL 1,000 ML IV SCH (14:36)
[2020-01-01 23:51] VITALS: BP 125/87
[2020-01-01] MEDS: NICOTINE 7 MG/24 HR PATCH.TD24 TD SCH (23:55)
[2020-01-02] MEDS: HEPARIN 5,000 UNITS/ML, 1ML SQ SCH ×3 (02:05→17:18)
[2020-01-02 02:07] VITALS: BP 133/86
[2020-01-02 04:55] LABS: ANION GAP 4 mmol/L (5-15); CALCIUM 7.4 mg/dL (8.5-10.1); CHLORIDE 116 mmol/L (98-107)
[2020-01-02 04:56] LABS: CREATININE 0.44 mg/dL (0.55-1.02)
[2020-01-02] MEDS: VANCOMYCIN 50 MG/ML ORAL SUSP PO SCH ×4 (05:42→23:35)
[2020-01-02] MEDS: LACTOBACILLUS CHEW TABLET PO SCH ×4 (05:42→20:33)
[2020-01-02] MEDS: MONTELUKAST 10 MG TABLET PO SCH (08:11)
[2020-01-02] MEDS: MULTIVITAMIN 1 TABLET PO SCH (08:11)
[2020-01-02] MEDS: POTASSIUM CHLORIDE 20 MEQ TAB.ER.PRT PO SCH (08:11)
[2020-01-02] MEDS: THIAMINE 100MG TABLET PO SCH (08:11)
[2020-01-02] MEDS: CALCIUM/VITAMIN D3 250-125 TABLET PO SCH ×3 (08:12→20:33)
[2020-01-02] MEDS: FOLIC ACID 1 MG TABLET PO SCH (08:12)
[2020-01-02] MEDS: CEFTRIAXONE PMX 1GM/50ML 50 ML IV SCH (08:12)
[2020-01-02 08:47] VITALS: BP 121/85
[2020-01-02] MEDS: NS + 40MEQ KCL 1,000 ML IV SCH (09:53)
[2020-01-02 14:15] VITALS: BP 129/85
[2020-01-02 19:32] VITALS: BP 123/86
[2020-01-02] MEDS: NICOTINE 7 MG/24 HR PATCH.TD24 TD SCH (20:33)
[2020-01-03 01:15] VITALS: BP 109/70
[2020-01-03] MEDS: NS + 40MEQ KCL 1,000 ML IV SCH (02:44)
[2020-01-03] MEDS: HEPARIN 5,000 UNITS/ML, 1ML SQ SCH ×2 (02:44→09:22)
[2020-01-03] MEDS: VANCOMYCIN 50 MG/ML ORAL SUSP PO SCH ×2 (05:34→11:48)
[2020-01-03] MEDS: LACTOBACILLUS CHEW TABLET PO SCH ×2 (05:34→11:48)
[2020-01-03 05:42] LABS: ALBUMIN 1.9 g/dL (3.4-5.0); ANION GAP 4 mmol/L (5-15); CALCIUM 7.4 mg/dL (8.5-10.1); CHLORIDE 117 mmol/L (98-107)
[2020-01-03 05:44] LABS: ALANINE AMINOTRANSFERASE 53 U/L (12-78); ALKALINE PHOSPHATASE 120 U/L (45-117); BILIRUBIN,TOTAL 1.2 mg/dL (0.2-1.0); CREATININE 0.42 mg/dL (0.55-1.02)
[2020-01-03] MEDS ORDERED: SODIUM CHLORIDE 0.9% 1,000 ML IV SCH (08:00)
[2020-01-03 08:23] VITALS: BP 112/79
[2020-01-03] MEDS: CALCIUM/VITAMIN D3 250-125 TABLET PO SCH (09:22)
[2020-01-03] MEDS: MONTELUKAST 10 MG TABLET PO SCH (09:22)
[2020-01-03] MEDS: THIAMINE 100MG TABLET PO SCH (09:22)
[2020-01-03] MEDS: MULTIVITAMIN 1 TABLET PO SCH (09:22)
[2020-01-03] MEDS: POTASSIUM CHLORIDE 20 MEQ TAB.ER.PRT PO SCH (09:22)
[2020-01-03] MEDS: FOLIC ACID 1 MG TABLET PO SCH (09:22)
[2020-01-03] MEDS ORDERED: CALC1TAB68 PO (09:41)
[2020-01-03] MEDS ORDERED: VANC1VIA3 PO (09:41)
[2020-01-03] MEDS ORDERED: POTA20TA6 PO (09:41)
[2020-01-03] MEDS ORDERED: ACID1TAB7 PO (09:41)
== END 2020-01-03 13:26 | disposition home health service (06) | DRG 872 ==
LOC: ED 17:57 → EDIP 19:43 → 5SO 23:41
PROVIDERS: ADMIT Family Medicine; ATTEND Internal Medicine
DX: A41.9 Sepsis, unspecified organism (principal); N39.0 Urinary tract infection, site not specified; K52.9 Noninfective gastroenteritis and colitis, unspecified; E87.6 Hypokalemia; J45.909 Unspecified asthma, uncomplicated; F32.9 Major depressive disorder, single episode, unspecified; F17.200 Nicotine dependence, unspecified, uncomplicated; R74.0 Nonspecific elevation of levels of transaminase and lactic acid dehydrogenase [LDH]; F17.210 Nicotine dependence, cigarettes, uncomplicated; D69.6 Thrombocytopenia, unspecified; B96.20 Unspecified Escherichia coli [E. coli] as the cause of diseases classified elsewhere; E83.51 Hypocalcemia; F51.3 Sleepwalking [somnambulism]; Z79.899 Other long term (current) drug therapy; Z90.49 Acquired absence of other specified parts of digestive tract
CPT/HCPCS: 36415; 89055; J3370; 74177; 76705; 80048; 80053; 80074; 81001; 82140; 82330; 82962; 83605; 83690; 83735; 84132; 85025; 87040; 87077; 87086; 87186; 87324; 93005; 93970; 99291; G0378; J0696; J1644; J3480; Q9967; J3475; J7030; J7040

== ENCOUNTER 2020-05-17 13:25 | Inpatient (IN) | payer BC ==
[~2020-05-17] VITALS: Ht 152.4 cm; Wt 71.4 kg
[~2020-05-17 13:25] MED LIST changes: +ACID1TAB7 PO; +BUSP5TAB2 PO; -CALC-666 PO; +CALC1TAB68 PO; +CALC500T14 PO; +PARO30TA45 PO; +PARO7.5C2 PO; +VANC1VIA3 PO
--- NOTE | 2020-05-17 13:38 | NUR ---
PT BIB EMS FOR FAILURE TO THRIVE. PER "SHE HAS NOT BEEN EATING AND SHE NEVER GETS OUT OF BED. SHE DOESNT GET UP TO USE THE BATHROOM SHE WILL JUST GO AND SIT IN IT". PT RESTING IN [facility]. CONNECTED TO MONITORING EQUIPMENT
[2020-05-17] MEDS ORDERED: SODIUM CHLORIDE FLUSH 10ML SYR IVF ONE (14:00)
--- NOTE | 2020-05-17 14:20 | NUR ---
PIV PLACEMENT ATTEMPTED WITHOUT SUCCESS. LAB AT BEDSIDE FOR LAB DRAWN. TASK RN WILL ATTEMPT US PIV PLACEMENT.
--- NOTE | 2020-05-17 14:32 | NUR ---
PT STATES SHE IS UNABLE TO PROVIDE URINE SAMPLE AT THIS TIME. REFUSING STRAIGHT CATH.
[2020-05-17 14:37] LABS: BASOPHILS % (AUTO) 1 % (0-1); EOSINOPHILS % (AUTO) 0 % (1-7); LYMPHOCYTES % (AUTO) 14 % (22-44); MEAN CORPUSCULAR HEMOGLOBIN 34.3 pg (27.0-34.8); MEAN CORPUSCULAR HGB CONC 34.5 g/dL (32.4-35.8); MEAN PLATELET VOLUME 7.8 fL (7.4-10.4); MONOCYTES % (AUTO) 14 % (2-9); NEUTROPHILS % (AUTO) 71 % (42-75); PLATELET COUNT 102 x10^3/uL (130-400); RED BLOOD COUNT 2.82 x10^6/uL (3.82-5.3); RED CELL DISTRIBUTION WIDTH 20.3 % (9.6-15.2)
[2020-05-17 14:47] LABS: ALBUMIN 2.1 g/dL (3.4-5.0); CALCIUM 7.6 mg/dL (8.5-10.1); CHLORIDE 84 mmol/L (98-107)
[2020-05-17 14:50] LABS: ALANINE AMINOTRANSFERASE 16 U/L (12-78); ALKALINE PHOSPHATASE 98 U/L (45-117); BILIRUBIN,TOTAL 7.8 mg/dL (0.2-1.0); CREATININE 0.52 mg/dL (0.55-1.02); TOTAL PROTEIN 5.9 g/dL (6.4-8.2)
--- NOTE | 2020-05-17 14:53 | NUR ---
PT STATES SHE IS SUPPOSED TO BE WEARING OXYGEN AT HOME, BUT DOESN'T.
[2020-05-17 14:56] LABS: ANION GAP 10 mmol/L (5-15)
[2020-05-17 15:06] LABS: ANISOCYTOSIS 1+; MD MORPH REVIEW ONLY
[2020-05-17 15:07] LABS: <PLATELET ESTIMATE> DECREASED; <PLT MORPHOLOGY> NORMAL PLT MORPH
[2020-05-17] MEDS ORDERED: POTASSIUM CHLORIDE 20 MEQ TAB.ER.PRT PO ONE (15:30)
[2020-05-17] MEDS ORDERED: POTASSIUM CHLORIDE 40 MEQ in SODIUM CHLORIDE 0.9% 1,000 ML IV ONE (15:30)
[2020-05-17] MEDS ORDERED: MAGNESIUM SULFATE 1 GM in SODIUM CHLORIDE 0.9% 50 ML IV ONE (15:30)
[2020-05-17] MEDS ORDERED: POTASSIUM CHLORIDE 20 MEQ TAB.ER.PRT ONE (15:41)
[2020-05-17] MEDS ORDERED: MAGNESIUM SULFATE/D5W 100 ML ONE (15:42)
[2020-05-17] MEDS ORDERED: NS + 40MEQ KCL 1,000 ML IV ONE (15:42)
[2020-05-17] MEDS ORDERED: MAGNESIUM SULFATE/D5W 100 ML IVPB ONE (16:00)
[2020-05-17] MEDS ORDERED: SODIUM CHLORIDE FLUSH 10ML SYR IVF PRN (17:00)
[2020-05-17] MEDS ORDERED: LORazepam 1MG TABLET PO PRN (17:00)
[2020-05-17] MEDS ORDERED: LORazepam 2 MG/ML, 1ML IVPush PRN (17:00)
[2020-05-17] MEDS ORDERED: ONDANSETRON 2MG/ML, 2ML IVPush PRN (17:00)
[2020-05-17] MEDS ORDERED: ONDANSETRON ODT 4 MG PO PRN (17:00)
--- NOTE | 2020-05-17 18:00 | NUR ---
REPORT GIVEN TO SERGEI TAI,.
[2020-05-17 19:57] VITALS: BP 117/83
[2020-05-17] MEDS: CALCIUM/VITAMIN D3 250-125 TABLET PO SCH (21:00)
[2020-05-17 22:05] LABS: CLOSTRIDIUM DIFFICILE ANTIGEN POSITIVE; CLOSTRIDIUM DIFFICILE TOXIN NEGATIVE (Negative)
[2020-05-17] MEDS: VANCOMYCIN 50 MG/ML ORAL SUSP PO SCH (23:06)
[2020-05-17] MEDS: ENOXAPARIN 40 MG/0.4 ML SQ SCH (23:06)
[2020-05-17] MEDS: PAROXETINE 10 MG TABLET PO SCH (23:06)
[2020-05-17] MEDS: BUSPIRONE 5 MG TABLET PO SCH (23:07)
[2020-05-17] MEDS: NS + 20MEQ KCL 1,000 ML IV SCH (23:40)
[2020-05-18 00:44] VITALS: BP 94/68
[2020-05-18] MEDS: VANCOMYCIN 50 MG/ML ORAL SUSP PO SCH ×4 (04:34→23:51)
[2020-05-18 05:00] LABS: MICROSCOPIC INDICATED
[2020-05-18 06:41] LABS: MEAN CORPUSCULAR HEMOGLOBIN 34.3 pg (27.0-34.8); MEAN CORPUSCULAR HGB CONC 34.4 g/dL (32.4-35.8); PLATELET COUNT 74 x10^3/uL (130-400); RED BLOOD COUNT 2.33 x10^6/uL (3.82-5.3); RED CELL DISTRIBUTION WIDTH 19.9 % (9.6-15.2)
[2020-05-18 06:56] VITALS: BP 100/68
[2020-05-18 06:56] LABS: ALBUMIN 1.9 g/dL (3.4-5.0); CALCIUM 7.5 mg/dL (8.5-10.1); CHLORIDE 92 mmol/L (98-107)
[2020-05-18 07:09] LABS: ALANINE AMINOTRANSFERASE 11 U/L (12-78); ALKALINE PHOSPHATASE 86 U/L (45-117); BILIRUBIN,TOTAL 5.5 mg/dL (0.2-1.0); CREATININE 0.39 mg/dL (0.55-1.02); TOTAL PROTEIN 5.2 g/dL (6.4-8.2)
[2020-05-18 07:31] LABS: MD YES
[2020-05-18 07:32] LABS: ANISOCYTOSIS 1+; EOS#(MANUAL) 0.06 x10^3/uL (0.0-0.4); EOS% (MANUAL) 1 % (1-7); HYPOCHROMIA 1+; LYMPH#(MANUAL) 1.08 x10^3/uL (1-3.4); LYMPHS% (MANUAL) 18 % (22-44); MONOS% (MANUAL) 10 % (2-9); SEG#(MANUAL) 4.26 x10^3/uL (1.8-6.8); SEGS% (MANUAL) 71 % (42-75)
[2020-05-18 07:33] LABS: <PLATELET ESTIMATE> DECREASED; <PLT MORPHOLOGY> NORMAL PLT MORPH
[2020-05-18 07:39] LABS: ANION GAP 3 mmol/L (5-15)
[2020-05-18] MEDS: BUSPIRONE 5 MG TABLET PO SCH ×2 (08:30→23:52)
[2020-05-18] MEDS: MULTIVITAMIN 1 TABLET PO SCH (08:30)
[2020-05-18] MEDS: PANTOPRAZOLE 40MG TABLET PO SCH (08:31)
[2020-05-18] MEDS: CALCIUM/VITAMIN D3 250-125 TABLET PO SCH ×3 (08:31→21:00)
[2020-05-18] MEDS: POTASSIUM CHLORIDE 20 MEQ TAB.ER.PRT PO SCH (08:32)
[2020-05-18] MEDS: FOLIC ACID 1 MG TABLET PO SCH (08:32)
[2020-05-18] MEDS: THIAMINE 100MG TABLET PO SCH (08:32)
[2020-05-18] MEDS ORDERED: POTASSIUM CHLORIDE 20 MEQ TAB.ER.PRT PO ONE (09:00)
[2020-05-18] MEDS ORDERED: POTASSIUM PHOSPHATE 44 MEQ in SODIUM CHLORIDE 0.9% 500 ML IV ONE (09:00)
[2020-05-18 10:49] LABS: INTERNATIONAL NORMALIZED RATIO 1.55 (0.93-1.1); PROTHROMBIN TIME 16.4 Seconds (9.6-11.5)
[2020-05-18] MEDS: LACTOBACILLUS CHEW TABLET PO SCH ×3 (11:10→23:51)
[2020-05-18 13:31] VITALS: BP 106/74
[2020-05-18] MEDS: ENOXAPARIN 40 MG/0.4 ML SQ SCH (16:23)
[2020-05-18 21:02] VITALS: BP 90/56
[2020-05-18] MEDS: NS + 20MEQ KCL 1,000 ML IV SCH (23:50)
[2020-05-18] MEDS: PAROXETINE 10 MG TABLET PO SCH (23:51)
[2020-05-19 03:42] VITALS: BP 117/82
[2020-05-19] MEDS: VANCOMYCIN 50 MG/ML ORAL SUSP PO SCH ×4 (05:07→22:41)
[2020-05-19 05:13] LABS: BASOPHILS % (AUTO) 1 % (0-1); EOSINOPHILS % (AUTO) 1 % (1-7); LYMPHOCYTES % (AUTO) 25 % (22-44); MEAN CORPUSCULAR HEMOGLOBIN 34.3 pg (27.0-34.8); MEAN CORPUSCULAR HGB CONC 33.9 g/dL (32.4-35.8); MEAN PLATELET VOLUME 7.8 fL (7.4-10.4); MONOCYTES % (AUTO) 16 % (2-9); NEUTROPHILS % (AUTO) 58 % (42-75); PLATELET COUNT 96 x10^3/uL (130-400); RED BLOOD COUNT 2.38 x10^6/uL (3.82-5.3)
[2020-05-19 05:15] LABS: MD NO
[2020-05-19 05:20] LABS: ALANINE AMINOTRANSFERASE 14 U/L (12-78); ANION GAP 2 mmol/L (5-15); CALCIUM 7.5 mg/dL (8.5-10.1); CHLORIDE 95 mmol/L (98-107); CREATININE 0.36 mg/dL (0.55-1.02)
[2020-05-19 05:46] LABS: ALKALINE PHOSPHATASE 97 U/L (45-117); BILIRUBIN,TOTAL 3.4 mg/dL (0.2-1.0); TOTAL PROTEIN 5.5 g/dL (6.4-8.2)
[2020-05-19 07:00] VITALS: BP 101/69
[2020-05-19] MEDS: THIAMINE 100MG TABLET PO SCH (09:00)
[2020-05-19] MEDS: CALCIUM/VITAMIN D3 250-125 TABLET PO SCH ×3 (09:00→21:00)
[2020-05-19] MEDS: POTASSIUM CHLORIDE 20 MEQ TAB.ER.PRT PO SCH (09:14)
[2020-05-19] MEDS: FOLIC ACID 1 MG TABLET PO SCH (09:15)
[2020-05-19] MEDS: MULTIVITAMIN 1 TABLET PO SCH (09:15)
[2020-05-19] MEDS: LACTOBACILLUS CHEW TABLET PO SCH ×3 (09:15→22:41)
[2020-05-19] MEDS: PANTOPRAZOLE 40MG TABLET PO SCH (09:16)
[2020-05-19] MEDS: BUSPIRONE 5 MG TABLET PO SCH ×2 (09:17→22:40)
[2020-05-19] MEDS ORDERED: POTASSIUM PHOSPHATE 44 MEQ in SODIUM CHLORIDE 0.9% 500 ML IV ONE (09:30)
[2020-05-19 12:51] VITALS: BP 98/65
[2020-05-19] MEDS ORDERED: SODIUM CHLORIDE 0.9%, 500ML IVBOLUS ONE (15:00)
[2020-05-19] MEDS: ENOXAPARIN 40 MG/0.4 ML SQ SCH (17:04)
[2020-05-19 19:11] VITALS: BP 104/73
[2020-05-19] MEDS: PAROXETINE 10 MG TABLET PO SCH (22:40)
[2020-05-20 00:44] VITALS: BP 119/83
[2020-05-20] MEDS: NS + 20MEQ KCL 1,000 ML IV SCH ×2 (00:59→21:01)
[2020-05-20] MEDS: VANCOMYCIN 50 MG/ML ORAL SUSP PO SCH ×4 (05:51→23:05)
[2020-05-20 06:51] VITALS: BP 102/69
[2020-05-20] MEDS: POTASSIUM CHLORIDE 20 MEQ TAB.ER.PRT PO SCH (09:50)
[2020-05-20] MEDS: LACTOBACILLUS CHEW TABLET PO SCH ×3 (09:50→21:01)
[2020-05-20] MEDS: PANTOPRAZOLE 40MG TABLET PO SCH (09:50)
[2020-05-20] MEDS: FOLIC ACID 1 MG TABLET PO SCH (09:50)
[2020-05-20] MEDS: BUSPIRONE 5 MG TABLET PO SCH ×2 (09:50→21:01)
[2020-05-20] MEDS: MULTIVITAMIN 1 TABLET PO SCH (09:50)
[2020-05-20] MEDS: THIAMINE 100MG TABLET PO SCH (09:51)
[2020-05-20] MEDS: CALCIUM/VITAMIN D3 250-125 TABLET PO SCH ×3 (09:51→21:02)
[2020-05-20 12:39] VITALS: BP 111/76
[2020-05-20 13:02] LABS: CALCIUM 7.4 mg/dL (8.5-10.1); CHLORIDE 101 mmol/L (98-107); CREATININE 0.42 mg/dL (0.55-1.02)
[2020-05-20 13:06] LABS: BASOPHILS % (AUTO) 1 % (0-1); EOSINOPHILS % (AUTO) 0 % (1-7); LYMPHOCYTES % (AUTO) 23 % (22-44); MEAN CORPUSCULAR HEMOGLOBIN 33.7 pg (27.0-34.8); MEAN CORPUSCULAR HGB CONC 33.7 g/dL (32.4-35.8); MONOCYTES % (AUTO) 21 % (2-9); NEUTROPHILS % (AUTO) 54 % (42-75); PLATELET COUNT 124 x10^3/uL (130-400); RED BLOOD COUNT 2.23 x10^6/uL (3.82-5.3)
[2020-05-20 13:13] LABS: MD NO
[2020-05-20 13:15] LABS: ANION GAP 4 mmol/L (5-15)
[2020-05-20] MEDS: ENOXAPARIN 40 MG/0.4 ML SQ SCH (16:41)
[2020-05-20 20:41] VITALS: BP 106/63
[2020-05-20] MEDS: PAROXETINE 10 MG TABLET PO SCH (21:01)
[2020-05-21 00:54] VITALS: BP 114/77
[2020-05-21 03:55] LABS: MEAN CORPUSCULAR HGB CONC 34.1 g/dL (32.4-35.8); MEAN PLATELET VOLUME 7.6 fL (7.4-10.4); PLATELET COUNT 121 x10^3/uL (130-400); RED BLOOD COUNT 2.15 x10^6/uL (3.82-5.3); RED CELL DISTRIBUTION WIDTH 20.3 % (9.6-15.2)
[2020-05-21 04:04] LABS: ALANINE AMINOTRANSFERASE 17 U/L (12-78); ALBUMIN 1.8 g/dL (3.4-5.0); ANION GAP 3 mmol/L (5-15); CALCIUM 7.5 mg/dL (8.5-10.1); CHLORIDE 104 mmol/L (98-107); CREATININE 0.42 mg/dL (0.55-1.02)
[2020-05-21 04:07] LABS: ALKALINE PHOSPHATASE 91 U/L (45-117); BILIRUBIN,TOTAL 2.4 mg/dL (0.2-1.0); TOTAL PROTEIN 5.1 g/dL (6.4-8.2)
[2020-05-21 04:23] LABS: MD YES
[2020-05-21 04:25] LABS: ANISOCYTOSIS 1+; BANDS%(MANUAL) 3 % (0-7); BASOS#(MANUAL) 0.07 x10^3/uL (0-0.1); BASOS% (MANUAL) 1 % (0-1); HYPOCHROMIA 1+; LYMPH#(MANUAL) 2.01 x10^3/uL (1-3.4); LYMPHS% (MANUAL) 30 % (22-44); MONOS#(MANUAL) 1.14 x10^3/uL (0.3-2.7); MONOS% (MANUAL) 17 % (2-9); POLYCHROMASIA 1+; SEG#(MANUAL) 3.28 x10^3/uL (1.8-6.8); SEGS% (MANUAL) 49 % (42-75)
[2020-05-21 04:26] LABS: <PLATELET ESTIMATE> DECREASED; OVALOCYTES 1+
[2020-05-21 04:27] LABS: <PLT MORPHOLOGY> NORMAL PLT MORPH
[2020-05-21] MEDS: PANTOPRAZOLE 40MG TABLET PO SCH (05:14)
[2020-05-21] MEDS: VANCOMYCIN 50 MG/ML ORAL SUSP PO SCH ×4 (05:14→23:00)
[2020-05-21 06:45] VITALS: BP 122/81
[2020-05-21] MEDS: POTASSIUM CHLORIDE 20 MEQ TAB.ER.PRT PO SCH (09:24)
[2020-05-21] MEDS: LACTOBACILLUS CHEW TABLET PO SCH ×3 (09:24→20:11)
[2020-05-21] MEDS: FOLIC ACID 1 MG TABLET PO SCH (09:24)
[2020-05-21] MEDS: BUSPIRONE 5 MG TABLET PO SCH ×2 (09:24→20:11)
[2020-05-21] MEDS: CALCIUM/VITAMIN D3 250-125 TABLET PO SCH ×3 (09:25→20:13)
[2020-05-21] MEDS: THIAMINE 100MG TABLET PO SCH (09:25)
[2020-05-21] MEDS: MULTIVITAMIN 1 TABLET PO SCH (09:25)
[2020-05-21 10:23] LABS: OCCULT BLOOD POSITIVE (NEGATIVE)
[2020-05-21] MEDS: NS + 20MEQ KCL 1,000 ML IV SCH ×2 (11:33→23:00)
[2020-05-21 12:33] VITALS: BP 122/84
[2020-05-21] MEDS: PANTOPRAZOLE 40 MG IV IVPush SCH (15:16)
[2020-05-21 19:46] VITALS: BP 118/81
[2020-05-21] MEDS: PAROXETINE 10 MG TABLET PO SCH (20:12)
[2020-05-22] VITALS: BP 105/66
[2020-05-22 05:28] LABS: BASOPHILS % (AUTO) 1 % (0-1); EOSINOPHILS % (AUTO) 0 % (1-7); LYMPHOCYTES % (AUTO) 22 % (22-44); MEAN CORPUSCULAR HEMOGLOBIN 34.1 pg (27.0-34.8); MEAN CORPUSCULAR HGB CONC 33.2 g/dL (32.4-35.8); MEAN PLATELET VOLUME 8.2 fL (7.4-10.4); MONOCYTES % (AUTO) 21 % (2-9); NEUTROPHILS % (AUTO) 57 % (42-75); PLATELET COUNT 143 x10^3/uL (130-400); RED BLOOD COUNT 2.33 x10^6/uL (3.82-5.3); RED CELL DISTRIBUTION WIDTH 21.1 % (9.6-15.2)
[2020-05-22] MEDS: VANCOMYCIN 50 MG/ML ORAL SUSP PO SCH ×4 (05:33→23:16)
[2020-05-22] MEDS: PANTOPRAZOLE 40 MG IV IVPush SCH ×2 (05:33→17:03)
[2020-05-22 05:39] LABS: MD NO
[2020-05-22 05:42] LABS: ANION GAP 3 mmol/L (5-15); CHLORIDE 108 mmol/L (98-107)
[2020-05-22 05:45] LABS: % IRON SATURATION 10 % (20-55); CREATININE 0.51 mg/dL (0.55-1.02); IRON LEVEL 17 mcg/dL (50-170); TOTAL IRON BINDING CAPACITY 165 mcg/dL (250-450)
[2020-05-22 06:43] VITALS: BP 118/73
[2020-05-22] MEDS: POTASSIUM CHLORIDE 20 MEQ TAB.ER.PRT PO SCH ×2 (08:46→09:03)
[2020-05-22] MEDS: FOLIC ACID 1 MG TABLET PO SCH (08:46)
[2020-05-22] MEDS: CALCIUM/VITAMIN D3 250-125 TABLET PO SCH ×3 (08:46→21:09)
[2020-05-22] MEDS: LACTOBACILLUS CHEW TABLET PO SCH ×3 (08:46→21:08)
[2020-05-22] MEDS: MULTIVITAMIN 1 TABLET PO SCH (08:47)
[2020-05-22] MEDS: THIAMINE 100MG TABLET PO SCH (08:47)
[2020-05-22] MEDS: BUSPIRONE 5 MG TABLET PO SCH ×2 (08:47→21:09)
[2020-05-22] MEDS: PHYTONADIONE 10 MG/ML, 1ML SQ SCH (08:47)
[2020-05-22 13:42] VITALS: BP 124/84
[2020-05-22] MEDS: NS + 20MEQ KCL 1,000 ML IV SCH (14:02)
[2020-05-22] MEDS ORDERED: INSTRUCTION SEE COMMENTS XX PRN (16:00)
[2020-05-22] MEDS ORDERED: PHARMACY INSTRUCTION MC PRN (16:00)
[2020-05-22 18:45] VITALS: BP 126/86
[2020-05-22] MEDS: MELATONIN 3 MG TABLET PO SCH (21:08)
[2020-05-22] MEDS: PAROXETINE 10 MG TABLET PO SCH (21:08)
[2020-05-22 23:21] VITALS: BP 117/74
[2020-05-23] MEDS: QUETIAPINE 25MG TABLET PO PRN (00:47)
[2020-05-23 00:48] VITALS: BP 122/75
[2020-05-23] MEDS: NS + 20MEQ KCL 1,000 ML IV SCH (02:30)
[2020-05-23] MEDS: PANTOPRAZOLE 40 MG IV IVPush SCH (05:00)
[2020-05-23] MEDS: VANCOMYCIN 50 MG/ML ORAL SUSP PO SCH ×3 (05:00→20:41)
[2020-05-23 06:39] LABS: BASOPHILS % (AUTO) 1 % (0-1); EOSINOPHILS % (AUTO) 0 % (1-7); LYMPHOCYTES % (AUTO) 8 % (22-44); MEAN CORPUSCULAR HEMOGLOBIN 33.7 pg (27.0-34.8); MEAN PLATELET VOLUME 8.2 fL (7.4-10.4); MONOCYTES % (AUTO) 8 % (2-9); NEUTROPHILS % (AUTO) 84 % (42-75); PLATELET COUNT 143 x10^3/uL (130-400); RED BLOOD COUNT 2.43 x10^6/uL (3.82-5.3); RED CELL DISTRIBUTION WIDTH 20.9 % (9.6-15.2)
[2020-05-23 06:52] LABS: MD NO
[2020-05-23 07:44] LABS: ANION GAP 4 mmol/L (5-15); CALCIUM 7.7 mg/dL (8.5-10.1); CHLORIDE 109 mmol/L (98-107)
[2020-05-23 08:53] LABS: BILIRUBIN, DIRECT 1.9 mg/dL (0.1-0.2)
[2020-05-23 08:56] LABS: BILIRUBIN,INDIRECT 1.2 mg/dL (0.0-2.0); BILIRUBIN,TOTAL 3.1 mg/dL (0.2-1.0); TOTAL PROTEIN 5.8 g/dL (6.4-8.2)
[2020-05-23 09:00] VITALS: BP 113/61
[2020-05-23] MEDS ORDERED: MAGNESIUM SULFATE 3 GM in SODIUM CHLORIDE 0.9% 100 ML IV ONE (09:00)
[2020-05-23] MEDS: FOLIC ACID 1 MG TABLET PO SCH (11:08)
[2020-05-23] MEDS: LACTOBACILLUS CHEW TABLET PO SCH ×3 (11:08→20:41)
[2020-05-23] MEDS: IRON SUCROSE COMPLEX 100MG/5ML IV SCH (11:08)
[2020-05-23] MEDS: CALCIUM/VITAMIN D3 250-125 TABLET PO SCH ×3 (11:09→20:40)
[2020-05-23] MEDS: MULTIVITAMIN 1 TABLET PO SCH (11:09)
[2020-05-23] MEDS: THIAMINE 100MG TABLET PO SCH (11:10)
[2020-05-23] MEDS: ACETAMINOPHEN 325 MG TABLET PO PRN ×2 (11:11→21:10)
[2020-05-23] MEDS: POTASSIUM CHLORIDE 20 MEQ TAB.ER.PRT PO SCH (11:11)
[2020-05-23] MEDS: BUSPIRONE 5 MG TABLET PO SCH ×2 (11:11→20:40)
[2020-05-23] MEDS: CEFTRIAXONE PMX 2GM/50ML 50 ML IVPB SCH (11:11)
[2020-05-23] MEDS: PHYTONADIONE 10 MG/ML, 1ML SQ SCH (11:12)
[2020-05-23] MEDS: SODIUM CHLORIDE 0.9% 1,000 ML IV SCH ×2 (11:14→21:10)
[2020-05-23] MEDS ORDERED: LIDOCAINE 1%, 10ML ONE (14:32)
[2020-05-23 15:50] VITALS: BP 106/70
[2020-05-23] MEDS: PANTOPRAZOLE 40MG TABLET PO SCH (16:43)
[2020-05-23 17:07] LABS: MICROSCOPIC INDICATED
[2020-05-23 19:30] VITALS: BP 113/74
[2020-05-23] MEDS: MELATONIN 3 MG TABLET PO SCH (20:40)
[2020-05-23] MEDS: PAROXETINE 10 MG TABLET PO SCH (20:41)
[2020-05-24] VITALS (10 sets, daily range): BP systolic 80–107; BP diastolic 45–70
[2020-05-24] MEDS: VANCOMYCIN 50 MG/ML ORAL SUSP PO SCH ×5 (01:00→20:56)
[2020-05-24] MEDS ORDERED: SODIUM CHLORIDE 0.9% 500 ML IV SCH ×2 (01:30→03:00)
[2020-05-24] MEDS: PANTOPRAZOLE 40MG TABLET PO SCH ×2 (05:19→16:10)
[2020-05-24 06:00] LABS: BASOPHILS % (AUTO) 1 % (0-1); EOSINOPHILS % (AUTO) 0 % (1-7); LYMPHOCYTES % (AUTO) 13 % (22-44); MEAN CORPUSCULAR HGB CONC 32.3 g/dL (32.4-35.8); MEAN PLATELET VOLUME 8.5 fL (7.4-10.4); MONOCYTES % (AUTO) 11 % (2-9); NEUTROPHILS % (AUTO) 74 % (42-75); PLATELET COUNT 101 x10^3/uL (130-400); RED BLOOD COUNT 2.22 x10^6/uL (3.82-5.3); RED CELL DISTRIBUTION WIDTH 20.7 % (9.6-15.2)
[2020-05-24 06:11] LABS: ALANINE AMINOTRANSFERASE 18 U/L (12-78); ALBUMIN 1.7 g/dL (3.4-5.0); ANION GAP 6 mmol/L (5-15); CALCIUM 7.6 mg/dL (8.5-10.1); CHLORIDE 110 mmol/L (98-107); CREATININE 0.78 mg/dL (0.55-1.02)
[2020-05-24 06:14] LABS: ALKALINE PHOSPHATASE 90 U/L (45-117); BILIRUBIN,TOTAL 2.6 mg/dL (0.2-1.0); TOTAL PROTEIN 5.2 g/dL (6.4-8.2)
[2020-05-24 06:24] LABS: MD SCAN
[2020-05-24] MEDS ORDERED: VANCOMYCIN PER PHARMACY MC PRN (06:30)
[2020-05-24] MEDS ORDERED: PHARMACOKINETIC MONITORING MC PRN (07:00)
[2020-05-24] MEDS ORDERED: PHARMACOKINETIC CONSULTATION MC ONE (07:00)
[2020-05-24] MEDS ORDERED: VANCOMYCIN 1,400 MG in SODIUM CHLORIDE 0.9% 250 ML IV ONE (07:00)
[2020-05-24] MEDS: SODIUM CHLORIDE 0.9% 1,000 ML IV SCH ×2 (08:00→18:16)
[2020-05-24] MEDS: THIAMINE 100MG TABLET PO SCH (08:42)
[2020-05-24] MEDS: FOLIC ACID 1 MG TABLET PO SCH (08:43)
[2020-05-24] MEDS: QUETIAPINE 25MG TABLET PO PRN ×2 (08:44→20:54)
[2020-05-24] MEDS: POTASSIUM CHLORIDE 20 MEQ TAB.ER.PRT PO SCH (08:44)
[2020-05-24] MEDS: BUSPIRONE 5 MG TABLET PO SCH ×2 (08:45→20:54)
[2020-05-24] MEDS: CALCIUM/VITAMIN D3 250-125 TABLET PO SCH ×3 (08:46→20:55)
[2020-05-24] MEDS: LACTOBACILLUS CHEW TABLET PO SCH ×3 (08:47→20:54)
[2020-05-24] MEDS: MULTIVITAMIN 1 TABLET PO SCH (08:47)
[2020-05-24] MEDS: IRON SUCROSE COMPLEX 100MG/5ML IV SCH (08:48)
[2020-05-24] MEDS: PHYTONADIONE 10 MG/ML, 1ML SQ SCH (09:21)
[2020-05-24] MEDS: CEFTRIAXONE PMX 2GM/50ML 50 ML IVPB SCH (11:24)
[2020-05-24] MEDS: ALBUTEROL HFA 90 MCG/SPRAY INH PRN (16:09)
[2020-05-24] MEDS: PAROXETINE 10 MG TABLET PO SCH (20:56)
[2020-05-24] MEDS: VANCOMYCIN PMX 1GM/200ML 200 ML IVPB SCH (20:56)
[2020-05-24] MEDS: MELATONIN 3 MG TABLET PO SCH (20:56)
[2020-05-25 00:21] VITALS: BP 102/68
[2020-05-25] MEDS: VANCOMYCIN 50 MG/ML ORAL SUSP PO SCH ×4 (03:10→22:13)
[2020-05-25] MEDS: ALBUTEROL HFA 90 MCG/SPRAY INH PRN (05:13)
[2020-05-25] MEDS: SODIUM CHLORIDE 0.9% 1,000 ML IV SCH (06:05)
[2020-05-25] MEDS: PANTOPRAZOLE 40MG TABLET PO SCH ×2 (06:05→15:28)
[2020-05-25 06:10] LABS: ALBUMIN 1.7 g/dL (3.4-5.0); ANION GAP 6 mmol/L (5-15); CALCIUM 7.5 mg/dL (8.5-10.1); CHLORIDE 112 mmol/L (98-107); MEAN CORPUSCULAR HEMOGLOBIN 33.8 pg (27.0-34.8); MEAN CORPUSCULAR HGB CONC 33.3 g/dL (32.4-35.8); MEAN PLATELET VOLUME 9.6 fL (7.4-10.4); PLATELET COUNT 77 x10^3/uL (130-400); RED BLOOD COUNT 2.52 x10^6/uL (3.82-5.3); RED CELL DISTRIBUTION WIDTH 20.5 % (9.6-15.2)
[2020-05-25 06:15] LABS: ALANINE AMINOTRANSFERASE 20 U/L (12-78); ALKALINE PHOSPHATASE 104 U/L (45-117); BILIRUBIN,TOTAL 1.9 mg/dL (0.2-1.0); CREATININE 0.77 mg/dL (0.55-1.02); TOTAL PROTEIN 5.2 g/dL (6.4-8.2)
[2020-05-25 06:21] LABS: MD YES
[2020-05-25 06:25] LABS: BAND#(MANUAL) 1.51 x10^3/uL; BANDS%(MANUAL) 14 % (0-7); LYMPH#(MANUAL) 0.65 x10^3/uL (1-3.4); LYMPHS% (MANUAL) 6 % (22-44); MONOS#(MANUAL) 0.97 x10^3/uL (0.3-2.7); MONOS% (MANUAL) 9 % (2-9); SEG#(MANUAL) 7.67 x10^3/uL (1.8-6.8); SEGS% (MANUAL) 71 % (42-75)
[2020-05-25 06:27] LABS: ANISOCYTOSIS 2+; POLYCHROMASIA 1+
[2020-05-25 06:28] LABS: <PLATELET ESTIMATE> DECREASED; <PLT MORPHOLOGY> NORMAL PLT MORPH
[2020-05-25 07:05] VITALS: BP 108/78
[2020-05-25] MEDS ORDERED: PROPOFOL 10 MG/ML, 20ML ONE (07:43)
[2020-05-25] MEDS: CALCIUM/VITAMIN D3 250-125 TABLET PO SCH ×3 (09:00→22:14)
[2020-05-25] MEDS: THIAMINE 100MG TABLET PO SCH (09:00)
[2020-05-25] MEDS: LACTOBACILLUS CHEW TABLET PO SCH ×3 (09:05→22:14)
[2020-05-25] MEDS: IRON SUCROSE COMPLEX 100MG/5ML IV SCH (09:05)
[2020-05-25] MEDS: MULTIVITAMIN 1 TABLET PO SCH (09:05)
[2020-05-25] MEDS: BUSPIRONE 5 MG TABLET PO SCH ×2 (09:06→22:14)
[2020-05-25] MEDS: FOLIC ACID 1 MG TABLET PO SCH (09:06)
[2020-05-25] MEDS: QUETIAPINE 25MG TABLET PO PRN ×2 (09:07→22:14)
[2020-05-25] MEDS: POTASSIUM CHLORIDE 20 MEQ TAB.ER.PRT PO SCH (09:07)
[2020-05-25] MEDS: CEFTRIAXONE PMX 2GM/50ML 50 ML IVPB SCH (11:15)
[2020-05-25 13:00] VITALS: BP 102/59
[2020-05-25] MEDS: VANCOMYCIN PMX 1GM/200ML 200 ML IVPB SCH (14:54)
[2020-05-25] MEDS: HALOPERIDOL 5 MG/ML IV PRN ×2 (16:15→23:11)
[2020-05-25 17:43] LABS: HCT (SEDRATE) 21.9 % (34.6-47.8)
[2020-05-25] MEDS: DAPTOMYCIN 250 MG in SODIUM CHLORIDE 0.9% 100 ML IV SCH (18:21)
[2020-05-25 19:31] VITALS: BP 97/57
[2020-05-25] MEDS: PAROXETINE 10 MG TABLET PO SCH (22:14)
[2020-05-25] MEDS: MELATONIN 3 MG TABLET PO SCH (22:14)
[2020-05-26 00:54] VITALS: BP 98/61
[2020-05-26] MEDS: VANCOMYCIN 50 MG/ML ORAL SUSP PO SCH ×4 (03:41→21:51)
[2020-05-26] MEDS: PANTOPRAZOLE 40MG TABLET PO SCH (05:06)
[2020-05-26 07:00] VITALS: BP 110/71
[2020-05-26 08:54] LABS: MEAN CORPUSCULAR HEMOGLOBIN 33.2 pg (27.0-34.8); MEAN CORPUSCULAR HGB CONC 32.1 g/dL (32.4-35.8); MEAN PLATELET VOLUME 9.1 fL (7.4-10.4); PLATELET COUNT 90 x10^3/uL (130-400); RED BLOOD COUNT 2.17 x10^6/uL (3.82-5.3); RED CELL DISTRIBUTION WIDTH 20.2 % (9.6-15.2)
[2020-05-26 09:02] LABS: ALANINE AMINOTRANSFERASE 20 U/L (12-78); ALBUMIN 1.7 g/dL (3.4-5.0); ANION GAP 6 mmol/L (5-15); CALCIUM 7.7 mg/dL (8.5-10.1); CHLORIDE 112 mmol/L (98-107); CREATININE 0.93 mg/dL (0.55-1.02)
[2020-05-26 09:04] LABS: ALKALINE PHOSPHATASE 92 U/L (45-117); BILIRUBIN,TOTAL 1.8 mg/dL (0.2-1.0); CREATINE KINASE, TOTAL 58 U/L (26-192); TOTAL PROTEIN 4.8 g/dL (6.4-8.2)
[2020-05-26 09:10] LABS: MD YES
[2020-05-26 09:12] LABS: ANISOCYTOSIS 1+; BAND#(MANUAL) 0.65 x10^3/uL; BANDS%(MANUAL) 6 % (0-7); ECHINOCYTES 1+; EOS#(MANUAL) 0.11 x10^3/uL (0.0-0.4); EOS% (MANUAL) 1 % (1-7); LYMPH#(MANUAL) 0.65 x10^3/uL (1-3.4); LYMPHS% (MANUAL) 6 % (22-44); MONOS#(MANUAL) 0.22 x10^3/uL (0.3-2.7); MONOS% (MANUAL) 2 % (2-9); POLYCHROMASIA 1+; SEG#(MANUAL) 9.27 x10^3/uL (1.8-6.8); SEGS% (MANUAL) 85 % (42-75)
[2020-05-26 09:13] LABS: <PLATELET ESTIMATE> DECREASED; <PLT MORPHOLOGY> NORMAL PLT MORPH
[2020-05-26] MEDS: LACTOBACILLUS CHEW TABLET PO SCH ×3 (10:04→20:17)
[2020-05-26] MEDS: BUSPIRONE 5 MG TABLET PO SCH ×2 (10:05→20:18)
[2020-05-26] MEDS: MULTIVITAMIN 1 TABLET PO SCH (10:05)
[2020-05-26] MEDS: FOLIC ACID 1 MG TABLET PO SCH (10:06)
[2020-05-26] MEDS: POTASSIUM CHLORIDE 20 MEQ TAB.ER.PRT PO SCH (10:06)
[2020-05-26] MEDS: IRON SUCROSE COMPLEX 100MG/5ML IV SCH (10:07)
[2020-05-26] MEDS: THIAMINE 100MG TABLET PO SCH (10:07)
[2020-05-26] MEDS: CALCIUM/VITAMIN D3 250-125 TABLET PO SCH ×3 (10:12→20:17)
[2020-05-26 13:24] VITALS: BP 92/65
[2020-05-26] MEDS ORDERED: LACTULOSE 20 GM/30 ML UDC PO PRN (17:00)
[2020-05-26] MEDS: DAPTOMYCIN 250 MG in SODIUM CHLORIDE 0.9% 100 ML IV SCH (18:00)
[2020-05-26 19:45] VITALS: BP 103/66
[2020-05-26] MEDS: MELATONIN 3 MG TABLET PO SCH (20:17)
[2020-05-26] MEDS: PAROXETINE 10 MG TABLET PO SCH (20:18)
[2020-05-26] MEDS: HALOPERIDOL 5 MG/ML IV PRN (20:19)
[2020-05-26] MEDS: QUETIAPINE 25MG TABLET PO PRN (21:50)
[2020-05-27] MEDS: VANCOMYCIN 50 MG/ML ORAL SUSP PO SCH ×4 (06:03→23:54)
[2020-05-27 07:05] VITALS: BP 99/69
[2020-05-27 08:02] LABS: MEAN CORPUSCULAR HEMOGLOBIN 33.4 pg (27.0-34.8); MEAN CORPUSCULAR HGB CONC 32.4 g/dL (32.4-35.8); MEAN PLATELET VOLUME 8.8 fL (7.4-10.4); PLATELET COUNT 106 x10^3/uL (130-400); RED BLOOD COUNT 2.29 x10^6/uL (3.82-5.3); RED CELL DISTRIBUTION WIDTH 20.2 % (9.6-15.2)
[2020-05-27] MEDS: IRON SUCROSE COMPLEX 100MG/5ML IV SCH (08:09)
[2020-05-27 08:12] LABS: ALANINE AMINOTRANSFERASE 24 U/L (12-78); ALBUMIN 1.8 g/dL (3.4-5.0); ANION GAP 5 mmol/L (5-15); CHLORIDE 110 mmol/L (98-107); CREATININE 1.29 mg/dL (0.55-1.02)
[2020-05-27] MEDS: BUSPIRONE 5 MG TABLET PO SCH ×2 (08:12→21:15)
[2020-05-27] MEDS: POTASSIUM CHLORIDE 20 MEQ TAB.ER.PRT PO SCH (08:12)
[2020-05-27] MEDS: LACTOBACILLUS CHEW TABLET PO SCH ×3 (08:13→21:14)
[2020-05-27] MEDS: THIAMINE 100MG TABLET PO SCH (08:13)
[2020-05-27] MEDS: MULTIVITAMIN 1 TABLET PO SCH (08:13)
[2020-05-27] MEDS: FOLIC ACID 1 MG TABLET PO SCH (08:13)
[2020-05-27 08:14] LABS: ALKALINE PHOSPHATASE 106 U/L (45-117); BILIRUBIN,TOTAL 1.9 mg/dL (0.2-1.0); TOTAL PROTEIN 5.1 g/dL (6.4-8.2)
[2020-05-27] MEDS: CALCIUM/VITAMIN D3 250-125 TABLET PO SCH ×3 (08:14→21:15)
[2020-05-27 08:21] LABS: MD YES
[2020-05-27 08:23] LABS: <PLATELET ESTIMATE> DECREASED; <PLT MORPHOLOGY> NORMAL PLT MORPH; ANISOCYTOSIS 1+; BAND#(MANUAL) 0.41 x10^3/uL; BANDS%(MANUAL) 3 % (0-7); LYMPH#(MANUAL) 1.36 x10^3/uL (1-3.4); LYMPHS% (MANUAL) 10 % (22-44); MONOS#(MANUAL) 0.82 x10^3/uL (0.3-2.7); MONOS% (MANUAL) 6 % (2-9); POLYCHROMASIA 1+; SEG#(MANUAL) 11.02 x10^3/uL (1.8-6.8); SEGS% (MANUAL) 81 % (42-75)
[2020-05-27 08:25] LABS: PMNS WITH VACUOLES 1+
[2020-05-27 15:12] VITALS: BP 108/68
[2020-05-27] MEDS: DAPTOMYCIN 250 MG in SODIUM CHLORIDE 0.9% 100 ML IV SCH ×2 (17:16→20:25)
[2020-05-27] MEDS: QUETIAPINE 25MG TABLET PO PRN ×2 (17:18→21:15)
[2020-05-27 21:07] VITALS: BP 137/83
[2020-05-27] MEDS: PAROXETINE 10 MG TABLET PO SCH (21:14)
[2020-05-27] MEDS: MELATONIN 3 MG TABLET PO SCH (21:14)
[2020-05-27] MEDS: HALOPERIDOL 5 MG/ML IV PRN (21:15)
[2020-05-27] MEDS: ALBUTEROL HFA 90 MCG/SPRAY INH PRN (23:54)
[2020-05-28 00:35] VITALS: BP 96/61
[2020-05-28] MEDS: ALBUTEROL HFA 90 MCG/SPRAY INH PRN (05:21)
[2020-05-28] MEDS: VANCOMYCIN 50 MG/ML ORAL SUSP PO SCH ×3 (05:21→22:22)
[2020-05-28 07:10] VITALS: BP 115/60
[2020-05-28 07:43] LABS: ALANINE AMINOTRANSFERASE 24 U/L (12-78); ALBUMIN 1.5 g/dL (3.4-5.0); ANION GAP 7 mmol/L (5-15); CALCIUM 7.9 mg/dL (8.5-10.1); CHLORIDE 111 mmol/L (98-107); CREATININE 1.62 mg/dL (0.55-1.02)
[2020-05-28 07:45] LABS: ALKALINE PHOSPHATASE 116 U/L (45-117); BILIRUBIN,TOTAL 2.3 mg/dL (0.2-1.0); TOTAL PROTEIN 5.1 g/dL (6.4-8.2)
[2020-05-28] MEDS: SODIUM CHLORIDE 0.9% 1,000 ML IV SCH ×2 (08:30→20:40)
[2020-05-28 08:35] LABS: MEAN CORPUSCULAR HEMOGLOBIN 33.2 pg (27.0-34.8); MEAN PLATELET VOLUME 8.9 fL (7.4-10.4); PLATELET COUNT 110 x10^3/uL (130-400); RED BLOOD COUNT 2.31 x10^6/uL (3.82-5.3); RED CELL DISTRIBUTION WIDTH 20.7 % (9.6-15.2)
[2020-05-28 08:59] LABS: MD YES
[2020-05-28 09:00] LABS: BAND#(MANUAL) 0.35 x10^3/uL; BANDS%(MANUAL) 2 % (0-7); LYMPHS% (MANUAL) 8 % (22-44); MONOS% (MANUAL) 4 % (2-9); SEG#(MANUAL) 15.05 x10^3/uL (1.8-6.8); SEGS% (MANUAL) 86 % (42-75)
[2020-05-28 09:01] LABS: <PLATELET ESTIMATE> DECREASED; <PLT MORPHOLOGY> NORMAL PLT MORPH; ANISOCYTOSIS 1+; POLYCHROMASIA 1+
[2020-05-28 09:44] LABS: INTERNATIONAL NORMALIZED RATIO 1.6 (0.93-1.1); PROTHROMBIN TIME 16.9 Seconds (9.6-11.5)
[2020-05-28] MEDS ORDERED: FLUMAZENIL 0.1 MG/1 ML, 5ML ONE (12:24)
[2020-05-28] MEDS ORDERED: MIDAZOLAM 1 MG/ML, 5ML ONE (12:24)
[2020-05-28] MEDS ORDERED: NALOXONE 1 MG/ML, 2ML ONE (12:24)
[2020-05-28] MEDS ORDERED: FENTANYL PF 100 MCG/2ML ONE (12:24)
[2020-05-28] MEDS ORDERED: GADOTERATE 7.5 MMOL/15 ML VIAL ONE (13:49)
[2020-05-28 14:12] VITALS: BP 101/62
[2020-05-28] MEDS: LACTOBACILLUS CHEW TABLET PO SCH ×3 (15:00→21:06)
[2020-05-28] MEDS: CALCIUM/VITAMIN D3 250-125 TABLET PO SCH ×3 (15:00→21:00)
[2020-05-28] MEDS: BUSPIRONE 5 MG TABLET PO SCH ×2 (16:28→21:03)
[2020-05-28] MEDS: CEFAZOLIN PMX 2GM/50ML 50 ML IVPB SCH (18:45)
[2020-05-28] MEDS: POTASSIUM CHLORIDE 20 MEQ TAB.ER.PRT PO SCH (19:51)
[2020-05-28 20:19] VITALS: BP 124/72
[2020-05-28] MEDS: PAROXETINE 10 MG TABLET PO SCH (21:04)
[2020-05-28] MEDS: MELATONIN 3 MG TABLET PO SCH (21:05)
[2020-05-28] MEDS: MULTIVITAMIN 1 TABLET PO SCH (21:35)
[2020-05-28] MEDS: FOLIC ACID 1 MG TABLET PO SCH (21:35)
[2020-05-28] MEDS: THIAMINE 100MG TABLET PO SCH (21:35)
[2020-05-28] MEDS ORDERED: DAPTOMYCIN 450 MG in SODIUM CHLORIDE 0.9% 100 ML IV SCH (22:30)
[2020-05-29] MEDS: VANCOMYCIN 50 MG/ML ORAL SUSP PO SCH ×4 (06:17→19:40)
[2020-05-29] MEDS: CEFAZOLIN PMX 2GM/50ML 50 ML IVPB SCH ×2 (06:18→18:12)
[2020-05-29 06:52] LABS: ALANINE AMINOTRANSFERASE 25 U/L (12-78); ALBUMIN 1.8 g/dL (3.4-5.0); ANION GAP 5 mmol/L (5-15); CALCIUM 8.3 mg/dL (8.5-10.1); CHLORIDE 112 mmol/L (98-107); CREATININE 1.78 mg/dL (0.55-1.02)
[2020-05-29 06:55] LABS: ALKALINE PHOSPHATASE 115 U/L (45-117); BILIRUBIN,TOTAL 2.4 mg/dL (0.2-1.0); TOTAL PROTEIN 5.2 g/dL (6.4-8.2)
[2020-05-29 06:58] VITALS: BP 114/79
[2020-05-29 07:17] LABS: BASOPHILS % (AUTO) 1 % (0-1); EOSINOPHILS % (AUTO) 0 % (1-7); LYMPHOCYTES % (AUTO) 11 % (22-44); MEAN CORPUSCULAR HEMOGLOBIN 33.1 pg (27.0-34.8); MEAN CORPUSCULAR HGB CONC 31.8 g/dL (32.4-35.8); MEAN PLATELET VOLUME 8.9 fL (7.4-10.4); MONOCYTES % (AUTO) 9 % (2-9); NEUTROPHILS % (AUTO) 80 % (42-75); PLATELET COUNT 121 x10^3/uL (130-400); RED BLOOD COUNT 2.24 x10^6/uL (3.82-5.3); RED CELL DISTRIBUTION WIDTH 20.5 % (9.6-15.2)
[2020-05-29 07:51] LABS: MD SCAN
[2020-05-29] MEDS: THIAMINE 100MG TABLET PO SCH (08:09)
[2020-05-29] MEDS: MULTIVITAMIN 1 TABLET PO SCH (08:09)
[2020-05-29] MEDS: BUSPIRONE 5 MG TABLET PO SCH ×2 (08:09→19:39)
[2020-05-29] MEDS: LACTOBACILLUS CHEW TABLET PO SCH ×3 (08:10→19:40)
[2020-05-29] MEDS: CALCIUM/VITAMIN D3 250-125 TABLET PO SCH ×3 (08:10→19:40)
[2020-05-29] MEDS: POTASSIUM CHLORIDE 20 MEQ TAB.ER.PRT PO SCH (08:10)
[2020-05-29] MEDS: FOLIC ACID 1 MG TABLET PO SCH (08:10)
[2020-05-29] MEDS: ALBUTEROL HFA 90 MCG/SPRAY INH PRN (08:18)
[2020-05-29 08:56] LABS: INTERNATIONAL NORMALIZED RATIO 1.72 (0.93-1.1); PROTHROMBIN TIME 18.1 Seconds (9.6-11.5)
[2020-05-29 12:28] VITALS: BP 105/70
[2020-05-29 12:48] VITALS: BP 85/54
[2020-05-29 15:16] VITALS: BP 108/76
[2020-05-29 16:03] LABS: INTERNATIONAL NORMALIZED RATIO 1.6 (0.93-1.1); PROTHROMBIN TIME 16.9 Seconds (9.6-11.5)
[2020-05-29] MEDS: SODIUM CHLORIDE 0.9% 1,000 ML IV SCH (18:12)
[2020-05-29] MEDS: MELATONIN 3 MG TABLET PO SCH (19:40)
[2020-05-29] MEDS: PAROXETINE 10 MG TABLET PO SCH (19:40)
[2020-05-29 19:49] VITALS: BP 108/76
[2020-05-30] MEDS: SODIUM CHLORIDE 0.9% 1,000 ML IV SCH (02:06)
[2020-05-30] MEDS: VANCOMYCIN 50 MG/ML ORAL SUSP PO SCH ×4 (03:28→21:40)
[2020-05-30 06:13] LABS: ANION GAP 9 mmol/L (5-15); BASOPHILS % (AUTO) 1 % (0-1); CALCIUM 8.3 mg/dL (8.5-10.1); CHLORIDE 113 mmol/L (98-107); EOSINOPHILS % (AUTO) 0 % (1-7); LYMPHOCYTES % (AUTO) 13 % (22-44); MEAN CORPUSCULAR HEMOGLOBIN 33.2 pg (27.0-34.8); MEAN CORPUSCULAR HGB CONC 31.8 g/dL (32.4-35.8); MEAN PLATELET VOLUME 8.7 fL (7.4-10.4); MONOCYTES % (AUTO) 9 % (2-9); NEUTROPHILS % (AUTO) 77 % (42-75); PLATELET COUNT 127 x10^3/uL (130-400); RED BLOOD COUNT 2.18 x10^6/uL (3.82-5.3); RED CELL DISTRIBUTION WIDTH 21.5 % (9.6-15.2)
[2020-05-30 06:15] LABS: MD NO
[2020-05-30 06:17] LABS: ALANINE AMINOTRANSFERASE 14 U/L (12-78); ALBUMIN 1.8 g/dL (3.4-5.0); ALKALINE PHOSPHATASE 122 U/L (45-117); BILIRUBIN,TOTAL 2.1 mg/dL (0.2-1.0); CREATININE 1.92 mg/dL (0.55-1.02); TOTAL PROTEIN 5.2 g/dL (6.4-8.2)
[2020-05-30] MEDS: CEFAZOLIN PMX 2GM/50ML 50 ML IVPB SCH (06:30)
[2020-05-30 06:59] LABS: INTERNATIONAL NORMALIZED RATIO 1.64 (0.93-1.1); PROTHROMBIN TIME 17.3 Seconds (9.6-11.5)
[2020-05-30 08:00] VITALS: BP 113/80
[2020-05-30] MEDS: CALCIUM/VITAMIN D3 250-125 TABLET PO SCH ×3 (09:00→21:00)
[2020-05-30] MEDS ORDERED: SODIUM BICARBONATE 8.4% 75 MEQ in SODIUM CHLORIDE 0.45% 1,000 ML IV SCH (09:00)
[2020-05-30] MEDS: MULTIVITAMIN 1 TABLET PO SCH (09:12)
[2020-05-30] MEDS: THIAMINE 100MG TABLET PO SCH (09:12)
[2020-05-30] MEDS: FOLIC ACID 1 MG TABLET PO SCH (09:12)
[2020-05-30] MEDS: LACTOBACILLUS CHEW TABLET PO SCH ×3 (09:12→21:38)
[2020-05-30] MEDS: POTASSIUM CHLORIDE 20 MEQ TAB.ER.PRT PO SCH (09:13)
[2020-05-30] MEDS: BUSPIRONE 5 MG TABLET PO SCH ×2 (09:13→21:40)
[2020-05-30 13:00] VITALS: BP 112/77
[2020-05-30] MEDS: CEPHALEXIN 500 MG CAPSULE PO SCH ×2 (14:31→21:38)
[2020-05-30] MEDS: ALBUMIN HUMAN 25% 50 ML IV SCH ×2 (15:27→22:47)
[2020-05-30] MEDS: ALBUTEROL HFA 90 MCG/SPRAY INH PRN ×2 (15:45→23:08)
[2020-05-30 19:09] LABS: MICROSCOPIC INDICATED
[2020-05-30 19:33] LABS: CHLORIDE,URINE RANDOM 46 mmol/L; POTASSIUM,URINE RANDOM 32 mmol/L; SODIUM,URINE RANDOM 14 mmol/L
[2020-05-30 19:52] VITALS: BP 106/67
[2020-05-30] MEDS: MELATONIN 3 MG TABLET PO SCH (21:38)
[2020-05-30] MEDS: PAROXETINE 10 MG TABLET PO SCH (21:38)
[2020-05-31] MEDS: VANCOMYCIN 50 MG/ML ORAL SUSP PO SCH ×4 (04:33→22:00)
[2020-05-31 05:17] LABS: BASOPHILS % (AUTO) 1 % (0-1); EOSINOPHILS % (AUTO) 0 % (1-7); LYMPHOCYTES % (AUTO) 10 % (22-44); MEAN CORPUSCULAR HEMOGLOBIN 33.8 pg (27.0-34.8); MEAN CORPUSCULAR HGB CONC 32.6 g/dL (32.4-35.8); MEAN PLATELET VOLUME 8.5 fL (7.4-10.4); MONOCYTES % (AUTO) 9 % (2-9); NEUTROPHILS % (AUTO) 81 % (42-75); PLATELET COUNT 104 x10^3/uL (130-400); RED BLOOD COUNT 2.18 x10^6/uL (3.82-5.3); RED CELL DISTRIBUTION WIDTH 22.2 % (9.6-15.2)
[2020-05-31 05:29] LABS: CHLORIDE 112 mmol/L (98-107)
[2020-05-31 05:34] LABS: ALBUMIN 1.9 g/dL (3.4-5.0); ALKALINE PHOSPHATASE 116 U/L (45-117); ANION GAP 9 mmol/L (5-15); BILIRUBIN,TOTAL 2.1 mg/dL (0.2-1.0); CALCIUM 7.5 mg/dL (8.5-10.1); CREATININE 1.83 mg/dL (0.55-1.02)
[2020-05-31 05:36] LABS: ALANINE AMINOTRANSFERASE < 6 U/L (12-78)
[2020-05-31 06:10] LABS: MD SCAN
[2020-05-31] MEDS: CEPHALEXIN 500 MG CAPSULE PO SCH ×3 (06:27→21:59)
[2020-05-31] MEDS: ALBUMIN HUMAN 25% 50 ML IV SCH ×3 (06:33→23:13)
[2020-05-31 07:05] VITALS: BP 125/65
[2020-05-31] MEDS: CALCIUM/VITAMIN D3 250-125 TABLET PO SCH ×3 (09:00→22:00)
[2020-05-31] MEDS: BUSPIRONE 5 MG TABLET PO SCH ×2 (09:24→21:59)
[2020-05-31] MEDS: THIAMINE 100MG TABLET PO SCH (09:25)
[2020-05-31] MEDS: POTASSIUM CHLORIDE 20 MEQ TAB.ER.PRT PO SCH (09:25)
[2020-05-31] MEDS: LACTOBACILLUS CHEW TABLET PO SCH ×3 (09:25→22:01)
[2020-05-31] MEDS: FOLIC ACID 1 MG TABLET PO SCH (09:25)
[2020-05-31] MEDS: MULTIVITAMIN 1 TABLET PO SCH (09:25)
[2020-05-31] MEDS: SODIUM BICARBONATE 8.4% 75 MEQ in SODIUM CHLORIDE 0.45% 1,000 ML IV SCH (10:08)
[2020-05-31] MEDS ORDERED: DAPTOMYCIN 450 MG in SODIUM CHLORIDE 0.9% 100 ML IV SCH (12:00)
[2020-05-31 13:46] VITALS: BP 114/74
[2020-05-31 21:53] VITALS: BP 116/69
[2020-05-31] MEDS: MELATONIN 3 MG TABLET PO SCH (21:59)
[2020-05-31] MEDS: PAROXETINE 10 MG TABLET PO SCH (22:00)
[2020-06-01] MEDS: SODIUM BICARBONATE 8.4% 75 MEQ in SODIUM CHLORIDE 0.45% 1,000 ML IV SCH ×2 (01:21→13:22)
[2020-06-01] MEDS: ALBUTEROL HFA 90 MCG/SPRAY INH PRN (01:21)
[2020-06-01] MEDS: VANCOMYCIN 50 MG/ML ORAL SUSP PO SCH ×4 (04:10→23:21)
[2020-06-01 04:55] LABS: MEAN CORPUSCULAR HEMOGLOBIN 34.1 pg (27.0-34.8); MEAN CORPUSCULAR HGB CONC 32.1 g/dL (32.4-35.8); MEAN PLATELET VOLUME 8.2 fL (7.4-10.4); PLATELET COUNT 86 x10^3/uL (130-400); RED BLOOD COUNT 2.14 x10^6/uL (3.82-5.3); RED CELL DISTRIBUTION WIDTH 22.5 % (9.6-15.2)
[2020-06-01 05:06] LABS: ANION GAP 10 mmol/L (5-15); CHLORIDE 114 mmol/L (98-107)
[2020-06-01 05:11] LABS: HCT (SEDRATE) 22.7 % (34.6-47.8)
[2020-06-01 05:44] LABS: MD YES
[2020-06-01 05:46] LABS: ANISOCYTOSIS 2+; BAND#(MANUAL) 0.33 x10^3/uL; BANDS%(MANUAL) 2 % (0-7); HYPOCHROMIA 1+; LYMPH#(MANUAL) 0.33 x10^3/uL (1-3.4); LYMPHS% (MANUAL) 2 % (22-44); MONOS#(MANUAL) 0.33 x10^3/uL (0.3-2.7); MONOS% (MANUAL) 2 % (2-9); SEG#(MANUAL) 15.42 x10^3/uL (1.8-6.8); SEGS% (MANUAL) 94 % (42-75); SMUDGE CELLS 1+
[2020-06-01 05:47] LABS: MICROCYTOSIS 1+; POLYCHROMASIA 1+
[2020-06-01 05:48] LABS: <PLATELET ESTIMATE> DECREASED; <PLT MORPHOLOGY> NORMAL PLT MORPH
[2020-06-01] MEDS: ALBUMIN HUMAN 25% 50 ML IV SCH (06:47)
[2020-06-01] MEDS: CEPHALEXIN 500 MG CAPSULE PO SCH (06:47)
[2020-06-01 07:40] VITALS: BP 133/80
[2020-06-01] MEDS: THIAMINE 100MG TABLET PO SCH (08:12)
[2020-06-01] MEDS: LACTOBACILLUS CHEW TABLET PO SCH ×3 (08:12→20:26)
[2020-06-01] MEDS: FOLIC ACID 1 MG TABLET PO SCH (08:12)
[2020-06-01] MEDS: POTASSIUM CHLORIDE 20 MEQ TAB.ER.PRT PO SCH (08:13)
[2020-06-01] MEDS: MULTIVITAMIN 1 TABLET PO SCH (08:13)
[2020-06-01] MEDS: BUSPIRONE 5 MG TABLET PO SCH ×2 (08:13→20:26)
[2020-06-01] MEDS: predniSONE 50MG TABLET PO SCH (08:13)
[2020-06-01] MEDS: CALCIUM/VITAMIN D3 250-125 TABLET PO SCH ×3 (08:20→20:26)
[2020-06-01] MEDS ORDERED: ALBUTEROL HFA 90 MCG/SPRAY INH PRN (10:00)
[2020-06-01] MEDS: ALBUTEROL HFA 90 MCG/SPRAY INH SCH ×3 (11:00→20:27)
[2020-06-01] MEDS: CEFTAROLINE 400 MG in SODIUM CHLORIDE 0.9% 100 ML IV SCH ×2 (11:20→23:21)
[2020-06-01 15:00] VITALS: BP 110/72
[2020-06-01] MEDS ORDERED: FUROSEMIDE 20 MG/2 ML IV ONE (15:00)
[2020-06-01] MEDS: NYSTATIN TOPICAL POWDER 15GM TP SCH ×2 (16:00→23:21)
[2020-06-01 20:00] VITALS: BP 135/84
[2020-06-01] MEDS: SODIUM BICARBONATE 650 MG TABLET PO SCH (20:26)
[2020-06-01] MEDS: PAROXETINE 10 MG TABLET PO SCH (20:26)
[2020-06-01] MEDS: MELATONIN 3 MG TABLET PO SCH (20:26)
[2020-06-02] MEDS: ALBUTEROL HFA 90 MCG/SPRAY INH SCH ×4 (06:11→20:16)
[2020-06-02 08:00] VITALS: BP 100/67
[2020-06-02] MEDS: LACTOBACILLUS CHEW TABLET PO SCH ×3 (08:29→20:14)
[2020-06-02] MEDS: BUSPIRONE 5 MG TABLET PO SCH ×2 (08:29→20:15)
[2020-06-02] MEDS: POTASSIUM CHLORIDE 20 MEQ TAB.ER.PRT PO SCH (08:30)
[2020-06-02] MEDS: THIAMINE 100MG TABLET PO SCH (08:31)
[2020-06-02] MEDS: FOLIC ACID 1 MG TABLET PO SCH (08:31)
[2020-06-02] MEDS: SODIUM BICARBONATE 650 MG TABLET PO SCH ×2 (08:31→20:14)
[2020-06-02] MEDS: predniSONE 50MG TABLET PO SCH (08:31)
[2020-06-02] MEDS: MULTIVITAMIN 1 TABLET PO SCH (08:31)
[2020-06-02] MEDS: CALCIUM/VITAMIN D3 250-125 TABLET PO SCH ×3 (08:33→20:15)
[2020-06-02] MEDS: NYSTATIN TOPICAL POWDER 15GM TP SCH ×3 (08:34→20:16)
[2020-06-02 09:22] LABS: ALBUMIN 2.4 g/dL (3.4-5.0); ANION GAP 13 mmol/L (5-15); CALCIUM 8.2 mg/dL (8.5-10.1); CHLORIDE 114 mmol/L (98-107); CREATININE 2.13 mg/dL (0.55-1.02)
[2020-06-02] MEDS: VANCOMYCIN 50 MG/ML ORAL SUSP PO SCH ×2 (12:09→23:40)
[2020-06-02] MEDS: CEFTAROLINE 400 MG in SODIUM CHLORIDE 0.9% 100 ML IV SCH ×2 (12:09→23:00)
[2020-06-02] MEDS: QUETIAPINE 25MG TABLET PO PRN (14:11)
[2020-06-02 15:02] VITALS: BP 91/63
[2020-06-02 20:00] VITALS: BP 109/68
[2020-06-02] MEDS: MELATONIN 3 MG TABLET PO SCH (20:14)
[2020-06-02] MEDS: PAROXETINE 10 MG TABLET PO SCH (20:15)
[2020-06-03] MEDS: CEFTAROLINE 400 MG in SODIUM CHLORIDE 0.9% 100 ML IV SCH ×2 (02:00→14:49)
[2020-06-03] MEDS: ALBUTEROL HFA 90 MCG/SPRAY INH SCH ×4 (05:55→21:49)
[2020-06-03] MEDS: SODIUM BICARBONATE 650 MG TABLET PO SCH ×2 (09:24→21:47)
[2020-06-03] MEDS: LACTOBACILLUS CHEW TABLET PO SCH ×3 (09:24→21:48)
[2020-06-03] MEDS: FOLIC ACID 1 MG TABLET PO SCH (09:24)
[2020-06-03] MEDS: THIAMINE 100MG TABLET PO SCH (09:24)
[2020-06-03] MEDS: MULTIVITAMIN 1 TABLET PO SCH (09:24)
[2020-06-03] MEDS: predniSONE 50MG TABLET PO SCH (09:24)
[2020-06-03] MEDS: BUSPIRONE 5 MG TABLET PO SCH ×2 (09:25→21:47)
[2020-06-03] MEDS: POTASSIUM CHLORIDE 20 MEQ TAB.ER.PRT PO SCH (09:25)
[2020-06-03] MEDS: NYSTATIN TOPICAL POWDER 15GM TP SCH ×3 (09:27→21:47)
[2020-06-03 09:39] LABS: ANION GAP 11 mmol/L (5-15); BASOPHILS % (AUTO) 1 % (0-1); CALCIUM 8.3 mg/dL (8.5-10.1); CHLORIDE 116 mmol/L (98-107); CREATININE 2.42 mg/dL (0.55-1.02); EOSINOPHILS % (AUTO) 0 % (1-7); LYMPHOCYTES % (AUTO) 8 % (22-44); MEAN CORPUSCULAR HEMOGLOBIN 33.9 pg (27.0-34.8); MEAN CORPUSCULAR HGB CONC 31.4 g/dL (32.4-35.8); MEAN PLATELET VOLUME 8.9 fL (7.4-10.4); MONOCYTES % (AUTO) 5 % (2-9); NEUTROPHILS % (AUTO) 86 % (42-75); PLATELET COUNT 69 x10^3/uL (130-400); RED BLOOD COUNT 2.58 x10^6/uL (3.82-5.3); RED CELL DISTRIBUTION WIDTH 25.4 % (9.6-15.2)
[2020-06-03] MEDS: CALCIUM/VITAMIN D3 250-125 TABLET PO SCH ×3 (09:41→21:00)
[2020-06-03 09:43] VITALS: BP 108/65
[2020-06-03 09:52] LABS: MD SCAN
[2020-06-03] MEDS: SODIUM CHLORIDE 0.9% 1,000 ML IV SCH ×2 (11:11→20:30)
[2020-06-03] MEDS: VANCOMYCIN 50 MG/ML ORAL SUSP PO SCH (11:17)
[2020-06-03 15:22] VITALS: BP 108/74
[2020-06-03 18:37] VITALS: BP 118/72
[2020-06-03] MEDS: PAROXETINE 10 MG TABLET PO SCH (21:48)
[2020-06-03] MEDS: MELATONIN 3 MG TABLET PO SCH (21:48)
[2020-06-04] MEDS: VANCOMYCIN 50 MG/ML ORAL SUSP PO SCH ×3 (00:24→23:47)
[2020-06-04] MEDS: SODIUM CHLORIDE 0.9% 1,000 ML IV SCH (00:40)
[2020-06-04 00:45] VITALS: BP 133/74
[2020-06-04] MEDS: CEFTAROLINE 400 MG in SODIUM CHLORIDE 0.9% 100 ML IV SCH ×2 (03:00→16:28)
[2020-06-04 05:42] LABS: ANION GAP 8 mmol/L (5-15); CALCIUM 8.1 mg/dL (8.5-10.1); CHLORIDE 117 mmol/L (98-107); CREATININE 2.37 mg/dL (0.55-1.02)
[2020-06-04 05:43] LABS: ALANINE AMINOTRANSFERASE 10 U/L (12-78); ALBUMIN 2.2 g/dL (3.4-5.0)
[2020-06-04 06:00] LABS: ALKALINE PHOSPHATASE 127 U/L (45-117); BILIRUBIN,TOTAL 1.8 mg/dL (0.2-1.0); TOTAL PROTEIN 5.5 g/dL (6.4-8.2)
[2020-06-04] MEDS: ALBUTEROL HFA 90 MCG/SPRAY INH SCH ×4 (06:51→20:53)
[2020-06-04 07:00] VITALS: BP 109/59
[2020-06-04 07:51] LABS: BASOPHILS % (AUTO) 0 % (0-1); EOSINOPHILS % (AUTO) 0 % (1-7); LYMPHOCYTES % (AUTO) 9 % (22-44); MEAN CORPUSCULAR HGB CONC 31.8 g/dL (32.4-35.8); MEAN PLATELET VOLUME 8.9 fL (7.4-10.4); MONOCYTES % (AUTO) 5 % (2-9); NEUTROPHILS % (AUTO) 86 % (42-75); RED BLOOD COUNT 2.28 x10^6/uL (3.82-5.3); RED CELL DISTRIBUTION WIDTH 25.3 % (9.6-15.2)
[2020-06-04] MEDS: CALCIUM/VITAMIN D3 250-125 TABLET PO SCH ×3 (09:00→20:57)
[2020-06-04 09:02] LABS: MD SCAN; PLATELET COUNT 44 x10^3/uL (130-400)
[2020-06-04] MEDS: FOLIC ACID 1 MG TABLET PO SCH (10:25)
[2020-06-04] MEDS: POTASSIUM CHLORIDE 20 MEQ TAB.ER.PRT PO SCH (10:25)
[2020-06-04] MEDS: BUSPIRONE 5 MG TABLET PO SCH ×2 (10:25→20:54)
[2020-06-04] MEDS: THIAMINE 100MG TABLET PO SCH (10:25)
[2020-06-04] MEDS: LACTOBACILLUS CHEW TABLET PO SCH ×3 (10:25→20:55)
[2020-06-04] MEDS: SODIUM BICARBONATE 650 MG TABLET PO SCH ×2 (10:25→20:54)
[2020-06-04] MEDS: MULTIVITAMIN 1 TABLET PO SCH (10:25)
[2020-06-04] MEDS: predniSONE 50MG TABLET PO SCH (10:25)
[2020-06-04] MEDS: NYSTATIN TOPICAL POWDER 15GM TP SCH ×3 (10:26→20:56)
[2020-06-04] MEDS: ALBUMIN HUMAN 25% 100 ML IV SCH ×2 (10:26→20:54)
[2020-06-04 10:28] LABS: HCT (SEDRATE) 25.1 % (34.6-47.8)
[2020-06-04 13:12] VITALS: BP 100/67
[2020-06-04] MEDS ORDERED: FUROSEMIDE 40 MG/4 ML IV ONE (13:30)
[2020-06-04] MEDS: QUETIAPINE 25MG TABLET PO PRN (17:08)
[2020-06-04 20:29] VITALS: BP 90/57
[2020-06-04] MEDS: PAROXETINE 10 MG TABLET PO SCH (20:56)
[2020-06-04] MEDS: MELATONIN 3 MG TABLET PO SCH (20:56)
[2020-06-05] MEDS: CEFTAROLINE 400 MG in SODIUM CHLORIDE 0.9% 100 ML IV SCH ×2 (04:10→16:00)
[2020-06-05] MEDS: ALBUTEROL HFA 90 MCG/SPRAY INH SCH ×4 (05:52→21:00)
[2020-06-05 06:19] LABS: MEAN CORPUSCULAR HEMOGLOBIN 35.2 pg (27.0-34.8); MEAN CORPUSCULAR HGB CONC 31.5 g/dL (32.4-35.8); MEAN PLATELET VOLUME 9.1 fL (7.4-10.4); RED BLOOD COUNT 1.95 x10^6/uL (3.82-5.3); RED CELL DISTRIBUTION WIDTH 25.8 % (9.6-15.2)
[2020-06-05 06:24] LABS: CHLORIDE 119 mmol/L (98-107); PLATELET COUNT 23 x10^3/uL (130-400)
[2020-06-05 06:33] LABS: ALANINE AMINOTRANSFERASE 15 U/L (12-78); ALBUMIN 2.8 g/dL (3.4-5.0); ALKALINE PHOSPHATASE 92 U/L (45-117); ANION GAP 7 mmol/L (5-15); BILIRUBIN,TOTAL 1.8 mg/dL (0.2-1.0); CALCIUM 8.2 mg/dL (8.5-10.1); CREATININE 2.56 mg/dL (0.55-1.02); TOTAL PROTEIN 5.4 g/dL (6.4-8.2)
[2020-06-05 06:34] VITALS: BP 108/73
[2020-06-05 07:16] LABS: MD YES
[2020-06-05 07:23] LABS: LYMPH#(MANUAL) 1.01 x10^3/uL (1-3.4); LYMPHS% (MANUAL) 9 % (22-44); MONOS#(MANUAL) 0.22 x10^3/uL (0.3-2.7); MONOS% (MANUAL) 2 % (2-9); SEG#(MANUAL) 9.97 x10^3/uL (1.8-6.8); SEGS% (MANUAL) 89 % (42-75)
[2020-06-05 07:24] LABS: <PLATELET ESTIMATE> DECREASED; <PLT MORPHOLOGY> NORMAL PLT MORPH; ANISOCYTOSIS 2+; HYPOCHROMIA 1+; MICROCYTOSIS 1+; POLYCHROMASIA 1+
[2020-06-05] MEDS: CALCIUM/VITAMIN D3 250-125 TABLET PO SCH ×3 (09:00→21:00)
[2020-06-05] MEDS: POTASSIUM CHLORIDE 20 MEQ TAB.ER.PRT PO SCH (09:00)
[2020-06-05] MEDS ORDERED: FUROSEMIDE 40 MG/4 ML IV SCH (10:00)
[2020-06-05] MEDS: ALBUMIN HUMAN 25% 100 ML IV SCH ×2 (10:19→21:00)
[2020-06-05] MEDS: THIAMINE 100MG TABLET PO SCH (10:19)
[2020-06-05] MEDS: LACTOBACILLUS CHEW TABLET PO SCH ×3 (10:19→21:00)
[2020-06-05] MEDS: BUSPIRONE 5 MG TABLET PO SCH ×2 (10:19→21:00)
[2020-06-05] MEDS: predniSONE 50MG TABLET PO SCH (10:19)
[2020-06-05] MEDS: SODIUM BICARBONATE 650 MG TABLET PO SCH ×2 (10:19→21:00)
[2020-06-05] MEDS: MULTIVITAMIN 1 TABLET PO SCH (10:20)
[2020-06-05] MEDS: FOLIC ACID 1 MG TABLET PO SCH (10:20)
[2020-06-05] MEDS: NYSTATIN TOPICAL POWDER 15GM TP SCH ×3 (10:20→21:00)
[2020-06-05 11:08] VITALS: BP 110/74
[2020-06-05] MEDS: VANCOMYCIN 50 MG/ML ORAL SUSP PO SCH (11:16)
[2020-06-05 11:25] VITALS: BP 111/78
[2020-06-05 12:24] VITALS: BP 122/59
[2020-06-05 13:11] VITALS: BP 105/74
[2020-06-05] MEDS ORDERED: METOLAZONE 5 MG TABLET PO ONE (14:30)
[2020-06-05] MEDS ORDERED: FUROSEMIDE 40 MG/4 ML IV ONE (14:30)
[2020-06-05] MEDS ORDERED: BISACODYL 5 MG EC TABLET PO PRN (16:00)
[2020-06-05] MEDS ORDERED: ONDANSETRON 2MG/ML, 2ML IVPush PRN (16:00)
[2020-06-05] MEDS ORDERED: SCOPOLAMINE 1MG PATCH TD PRN (16:30)
[2020-06-05] MEDS: MORPHINE SULFATE 4 MG/ML, 1ML IVPush PRN ×3 (16:52→18:55)
[2020-06-05] MEDS: LORazepam 2 MG/ML, 1ML IVPush PRN ×3 (16:52→18:55)
[2020-06-05] MEDS: ATROPINE OPHTH SOLN 1%, 5ML PO PRN ×2 (17:59→18:54)
[2020-06-05] MEDS: MELATONIN 3 MG TABLET PO SCH (21:00)
[2020-06-05] MEDS: PAROXETINE 10 MG TABLET PO SCH (21:00)
[2020-06-06] MEDS: VANCOMYCIN 50 MG/ML ORAL SUSP PO SCH
[2020-06-06] MEDS: CEFTAROLINE 400 MG in SODIUM CHLORIDE 0.9% 100 ML IV SCH (04:00)
[2020-06-06] MEDS: ALBUTEROL HFA 90 MCG/SPRAY INH SCH (05:38)
== END 2020-06-06 02:35 | disposition expired | DRG 871 ==
LOC: ED 15:32 → EDIP 16:46 → 5SO 17:54
PROVIDERS: ADMIT Internal Medicine; ATTEND Family Medicine
PROC: 0W9G3ZZ Drainage of Peritoneal Cavity, Percutaneous Approach (ICD-10-PCS; 2020-05-23)
PROC: 0T9B30Z Drainage of Bladder with Drainage Device, Percutaneous Approach (ICD-10-PCS; 2020-05-23)
PROC: 0DJ08ZZ Inspection of Upper Intestinal Tract, Via Natural or Artificial Opening Endoscopic (ICD-10-PCS; principal; 2020-05-25 07:30)
PROC: 02HV33Z Insertion of Infusion Device into Superior Vena Cava, Percutaneous Approach (ICD-10-PCS; 2020-05-28)
PROC: B548ZZA Ultrasonography of Superior Vena Cava, Guidance (ICD-10-PCS; 2020-05-28)
PROC: 00JU3ZZ Inspection of Spinal Canal, Percutaneous Approach (ICD-10-PCS; 2020-05-31)
PROC: 02HV33Z Insertion of Infusion Device into Superior Vena Cava, Percutaneous Approach (ICD-10-PCS; 2020-06-04)
DX: A41.02 Sepsis due to Methicillin resistant Staphylococcus aureus (principal); E43 Unspecified severe protein-calorie malnutrition; G93.41 Metabolic encephalopathy; J96.01 Acute respiratory failure with hypoxia; D68.4 Acquired coagulation factor deficiency; E87.0 Hyperosmolality and hypernatremia; E87.1 Hypo-osmolality and hyponatremia; E87.2 Acidosis; K76.6 Portal hypertension; N17.9 Acute kidney failure, unspecified; N39.0 Urinary tract infection, site not specified; A04.71 Enterocolitis due to Clostridium difficile, recurrent; Z20.822 Contact with and (suspected) exposure to COVID-19; B96.1 Klebsiella pneumoniae [K. pneumoniae] as the cause of diseases classified elsewhere; D50.0 Iron deficiency anemia secondary to blood loss (chronic); D53.9 Nutritional anemia, unspecified; D63.8 Anemia in other chronic diseases classified elsewhere; D69.59 Other secondary thrombocytopenia; E83.39 Other disorders of phosphorus metabolism; E83.42 Hypomagnesemia; E87.6 Hypokalemia; E87.70 Fluid overload, unspecified; F03.90 Unspecified dementia, unspecified severity, without behavioral disturbance, psychotic disturbance, mood disturbance, and anxiety; F10.20 Alcohol dependence, uncomplicated; F17.210 Nicotine dependence, cigarettes, uncomplicated; F32.9 Major depressive disorder, single episode, unspecified; F41.9 Anxiety disorder, unspecified; I10 Essential (primary) hypertension; I95.9 Hypotension, unspecified; Z51.5 Encounter for palliative care; K72.90 Hepatic failure, unspecified without coma; D72.829 Elevated white blood cell count, unspecified; I46.9 Cardiac arrest, cause unspecified; J45.909 Unspecified asthma, uncomplicated; K70.31 Alcoholic cirrhosis of liver with ascites; K76.0 Fatty (change of) liver, not elsewhere classified; Z66 Do not resuscitate; Z78.1 Physical restraint status; Z82.49 Family history of ischemic heart disease and other diseases of the circulatory system; Z98.84 Bariatric surgery status; Z79.899 Other long term (current) drug therapy; Z90.49 Acquired absence of other specified parts of digestive tract; Z98.891 History of uterine scar from previous surgery; Z79.891 Long term (current) use of opiate analgesic; Z68.30 Body mass index [BMI] 30.0-30.9, adult
CPT/HCPCS: 36415; 36600; 74021; 77001; 82042; 82150; 82945; 84145; 89051; 99285; J3370; J3490; 36573; 49083; 62328; 70553; 71045; 76700; 76770; 80048; 80053; 80069; 80076; 80320; 81001; 82140; 82272; 82436; 82550; 82607; 82803; 83540; 83550; 83615; 83690; 83735; 83880; 83970; 84100; 84133; 84157; 84300; 84443; 85014; 85018; 85025; 85610; 85651; 85730; 86140; 86850; 86870; 86900; 86922; 86923; 87040; 87070; 87077; 87086; 87147; 87186; 87205; 87324; 87493; 87635; 88108; 93005; 93306; 99152; 99153; 99156; 99157; G0378; J0690; J0696; J0712; J0878; J1650; J1756; J1940; J2250; J2405; J2704; J3010; J3430; J3475; J3480; P9047; Q0162; 92523-GN; A9575; C1751; C1769; C9113; G0480; J1630; J2060; J2270; J2310; J7030; J7040; J7050; J7512; P9016; P9017